=== PATIENT | female | born 1950 | race Caucasian/White ===

== ENCOUNTER 2016-10-07 13:23 | Inpatient (IN) | payer OTHER, MEDICAID ==
[2016-10-07] VITALS (10 sets, daily range): BP systolic 75–98; BP diastolic 30–65; PULSE 80–88; RESP 14–26; TEMP 97.1–98.3; O2SAT 90–97
[~2016-10-07] VITALS: Ht 162.6 cm; Wt 68.0 kg
[~2016-10-07 13:23] MED LIST: ALBU8.5H8 INH; ALEN70TA3 PO; AMI200 PO; AMIO200T2 PO; AZIT250T PO; BUSP5TAB3 PO; CARV25TA55 PO; CARV3.1246 PO; CLAR500T PO; COR3.125 PO; DIGO0.12 PO; DIGO125T79 PO; FURO-149 PO; FURO-150 PO; INSU100V11 SQ; INSU100V9 SUBCUT; INSU10VI4 SUBCUT; LEVO100T9 PO; LEVO500T20 PO; LEVO75TA7 PO; LIP10 PO; LOSA25TA3 PO; MAGN84TA4 PO; METO5TAB8 PO; NPH,100V SUBCUT; PANT40SU2 PO; PHEDM120 PO; PHEL5 PO; POLY17PO4 PO; POTA-118 PO; PRO40 PO; RIVA10TA PO; RIVA15TA PO; SOLI5TAB6 PO; SPIR25TA PO; VALS40TA6 PO; [UNRECOGNIZED DRUG - CODE] PO
--- NOTE | 2016-10-07 13:23 | NUR ---
TRIAGED AND BROUGTH BACK TO BED #5 VIA WHEELCHAIR, REPORT GIVEN TO [place]
--- NOTE | 2016-10-07 13:30 | NUR ---
PT. TO ER AAOx4 WITH HER DAUGHTER C/O COUGHING WITH SLIGHT SOB FOR LAST TWO WEEKS STATES THAT COUGH HAS WORSEN FOR LAST 4 DAYS, YELLOW SPUTUM AT THE MOMENT, NO FEVER, MILD SOB, HOB AT 45 DEGREES, 2 L OXYGEN NASAL CANULA, NO ACCESSORY USE OF MUSCLES, CLEAR SPEECH FOLLOWS COMMANDS, MILD EDEMA OF LOWER EXTREMITIES, LOW BP 89/50, ON SLITTER AND REWINDER
[2016-10-07 14:13] LABS: BASOPHILS % (AUTO) 0.4 % (0.0-2.0); EOSINOPHILS # (AUTO) 0.2 K/uL (0.0-0.4); EOSINOPHILS % (AUTO) 1.9 % (0.0-4.0); HEMATOCRIT 27.3 % (36-48); HEMOGLOBIN 8.5 g/dL (12.0-16.0); LYMPHOCYTES # (AUTO) 0.8 K/uL (1.0-5.5); LYMPHOCYTES % (AUTO) 9.9 % (20.5-51.5); MEAN CORPUSCULAR HEMOGLOBIN 23 pg (27-31); MEAN CORPUSCULAR HGB CONC 31 % (32-36); MEAN CORPUSCULAR VOLUME 75 fL (79.0-98.0); MONOCYTES # (AUTO) 0.9 K/uL (0.0-1.0); MONOCYTES % (AUTO) 10.5 % (1.7-9.3); NEUTROPHILS # (AUTO) 6.4 K/uL (1.8-7.7); NEUTROPHILS % (AUTO) 77.3 % (40.0-70.0); PLATELET COUNT (AUTO) 190 K/uL (130-430); RED BLOOD CELL COUNT(AUTO) 3.65 MIL/uL (4.2-6.2); RED CELL DISTRIBUTION WIDTH 15.9 % (9.0-15.0); WHITE BLOOD COUNT (AUTO) 8.3 K/uL (4.8-10.8)
[2016-10-07 14:19] LABS: INR 1.9 (0.8-1.2); PROTHROMBIN TIME 20.9 SECS (9.5-12.5)
[2016-10-07 14:24] LABS: CALCIUM 8.4 mg/dL (8.4-11.0); POTASSIUM 3.8 mmol/L (3.5-5.1)
[2016-10-07 14:25] LABS: ALBUMIN 3.2 g/dL (3.4-4.8); CREATININE 1.9 mg/dL (0.55-1.30); TOTAL BILIRUBIN 1.4 mg/dL (0.0-1.0); TOTAL PROTEIN, SERUM 7.9 g/dL (6.4-8.3)
[2016-10-07] MEDS ORDERED: AMIODARONE HCL 150 MG/3ML VIAL ONE (14:30)
--- NOTE | 2016-10-07 14:30 | NUR ---
Patient is having sustained slow V-tach at 105. Dr. Weeks is aware. Amiodarone 150mg IVP over 10 min with NS 500mL for hypotension started.
[2016-10-07] MEDS ORDERED: COR6.25 PO (14:45)
[2016-10-07] MEDS ORDERED: BUSP5TAB3 PO (14:45)
[2016-10-07] MEDS ORDERED: SPIR25TA4 PO (14:45)
[2016-10-07] MEDS ORDERED: METO25TA3 PO (14:45)
[2016-10-07] MEDS ORDERED: LOVA20TA2 PO (14:45)
[2016-10-07] MEDS ORDERED: METO5TAB8 PO (14:45)
--- NOTE | 2016-10-07 14:45 | NUR ---
Medication reconciliation completed with information provided by - PILL BOTTLES FROM PATIENT. Any prior medication reconciliation on file was reviewed and corrected.
--- NOTE | 2016-10-07 14:50 | NUR ---
Patient remains in a sustained wide complex rhythm. Dr. Weeks is aware.
[2016-10-07] MEDS ORDERED: AMIODARONE HCL 150 MG in D5W 100 ML IV ONE (15:00)
[2016-10-07] MEDS ORDERED: LEVOFLOXACIN 500 MG/D5W 100 ML IV ONE (16:00)
[2016-10-07] MEDS ORDERED: NACL 0.9% 1,000 ML IV ONE (16:00)
[2016-10-07] MEDS ORDERED: NS 500 ML IV ONE (16:00)
--- NOTE | 2016-10-07 16:00 | NUR ---
pt. in bed, bedpan provided for urination, states no pain, denies sob, denies pain
[2016-10-07 16:05] LABS: ABG TOTAL HEMOGLOBIN 9.3 G/dL (12.0-18.0); BLOOD GAS BASE EXCESS 4.6 mmol/L (-3.0-3.0); BLOOD GAS PH 7.459 (7.350-7.450)
[2016-10-07 16:06] LABS: BLOOD GAS COHb% 1.1 % (0.5-1.5); BLOOD GAS HHB 11.7 % (0.0-6.0)
--- NOTE | 2016-10-07 17:15 | NUR ---
orders received from Dr. krishna, pt.'s BP not stable 72/37, pt. will be transfered to ICU instead of MD VICTORINA aware
--- NOTE | 2016-10-07 18:00 | NUR ---
Patient will be admitted to care of dr. mendez. Admitted to icu unit. Will go to room 4 Belongings list completed. Summary report printed. Report given to ronna gatica
--- NOTE | 2016-10-07 18:30 | NUR ---
Dr Neri at bedside to assess patient. MD is aware of patient's low BP.
--- NOTE | 2016-10-07 19:00 | NUR ---
PM ASSESSMENT PT ALERT AND ORIENTED TO PERSON, PLACE, TIME AND EVENT. PT DENIES ANY PAIN. NO SIGNS OF DISTRESS AT THIS TIME. PACED RHYTHM ON HEAD SHIPPER. PACEMAKER NOTED TO LEFT CHEST. PT ON O2 2L NC . BREATHING EVEN AND UNLABORED. O2 SAT 98%. BP 84/53. PERIPHERAL IV 20G SALINE LOCK NOTED TO RIGHT FOREARM. SCD ON. PT'S DAUGHTER AT BEDSIDE. CALL LIGHT WITHIN REACH. BED AT LOWEST POSITION. CONTINUE TO MONITOR. Addendum: 10/07/16 at 1016 by Liss Martin RN TYPED IN WRONG TIME
--- NOTE | 2016-10-07 19:15 | NUR ---
SBAR given to MY. Endorsed all care.
--- NOTE | 2016-10-07 19:30 | NUR ---
PM ASSESSMENT PT ALERT AND ORIENTED TO PERSON, PLACE, TIME AND EVENT. PT DENIES ANY PAIN. NO SIGNS OF DISTRESS AT THIS TIME. PACED RHYTHM ON COFFEE SAMPLER. PACEMAKER NOTED TO LEFT CHEST. PT ON O2 2L NC . BREATHING EVEN AND UNLABORED. O2 SAT 98%. BP 84/53. PERIPHERAL IV 20G SALINE LOCK NOTED TO RIGHT FOREARM. SCD ON. PT'S DAUGHTER AT BEDSIDE. CALL LIGHT WITHIN REACH. BED AT LOWEST POSITION. CONTINUE TO MONITOR.
--- NOTE | 2016-10-07 19:37 | NUR ---
SPOKE WITH KRISTINA NEWSOME CONSULT WITH DR CHOWDARY.
[2016-10-07] MEDS: LEVOFLOXACIN 500 MG/D5W 100 ML IV SCH (20:00)
[2016-10-07] MEDS: busPIRone HCL 5 MG TABLET PO SCH (20:28)
[2016-10-07] MEDS: LACTOBACILLUS RHAMNOSUS GG 1 CAP CAPSULE PO SCH (20:28)
[2016-10-07] MEDS: SIMVASTATIN 10 MG TABLET PO SCH (20:28)
[2016-10-07] MEDS: INSULIN REGULAR, HUMAN 100 UNITS/ML, 10 ML VIAL (novoLIN R) SUBCUT PRN (20:33)
[2016-10-07] MEDS: CARVEDILOL 6.25 MG TABLET (COREG) PO SCH (21:00)
--- NOTE | 2016-10-07 21:00 | NUR ---
COREG HELD DUE TO LOW BLOOD PRESSURE. BP 75/30
[2016-10-07] MEDS: LevALBUTEROL HCL 1.25 MG/0.5 ML *CONC.* VIAL.NEB (XOPENEX CONC.) INH SCH (23:28)
[2016-10-08] VITALS (20 sets, daily range): BP systolic 71–109; BP diastolic 35–68; PULSE 71–101; RESP 12–28; TEMP 96.2–98.1; O2SAT 92–98
--- NOTE | 2016-10-08 00:40 | NUR ---
LOW BLOOD PRESSURE CALL DR MARTINI REGARDING LOW BLOOD PRESSURE. BP 71/37. NEW ORDER RECEIVED AND CARRIED OUT.
[2016-10-08] MEDS ORDERED: NS 250 ML IV ONE (00:45)
--- NOTE | 2016-10-08 02:00 | NUR ---
CARDIAC RHYTHM STRIP CANT BE PRINTED OUT DUE TO PRINTER OUT OF ORDER
--- NOTE | 2016-10-08 04:30 | NUR ---
CHG BATH DONE. LINEN CHANGED. PERINEAL CARE AND SKIN CARE DONE
[2016-10-08] MEDS: LEVOTHYROXINE SODIUM 0.1 MG TABLET PO SCH (06:13)
[2016-10-08 06:59] LABS: CALCIUM 7.9 mg/dL (8.4-11.0); CREATININE 1.57 mg/dL (0.55-1.30); POTASSIUM 3.4 mmol/L (3.5-5.1)
[2016-10-08 07:10] LABS: BASOPHILS % (AUTO) 0.5 % (0.0-2.0); EOSINOPHILS # (AUTO) 0.2 K/uL (0.0-0.4); HEMATOCRIT 23.4 % (36-48); HEMOGLOBIN 7.5 g/dL (12.0-16.0); MEAN CORPUSCULAR HEMOGLOBIN 24 pg (27-31); MEAN CORPUSCULAR HGB CONC 32 % (32-36); MEAN CORPUSCULAR VOLUME 74 fL (79.0-98.0); MONOCYTES # (AUTO) 0.8 K/uL (0.0-1.0); MONOCYTES % (AUTO) 10.7 % (1.7-9.3); NEUTROPHILS # (AUTO) 5.7 K/uL (1.8-7.7); NEUTROPHILS % (AUTO) 73.8 % (40.0-70.0); PLATELET COUNT (AUTO) 186 K/uL (130-430); RED BLOOD CELL COUNT(AUTO) 3.15 MIL/uL (4.2-6.2); RED CELL DISTRIBUTION WIDTH 15.7 % (9.0-15.0)
[2016-10-08 07:12] LABS: WHITE BLOOD COUNT (AUTO) 7.7 K/uL (4.8-10.8)
[2016-10-08] MEDS: LevALBUTEROL HCL 1.25 MG/0.5 ML *CONC.* VIAL.NEB (XOPENEX CONC.) INH SCH ×3 (07:26→23:00)
[2016-10-08 07:44] LABS: DIGOXIN 0.9 ng/mL (0.80-2.00)
--- NOTE | 2016-10-08 07:48 | NUR ---
GAVE REPORT TO ONCOMING NURSE
--- NOTE | 2016-10-08 08:00 | NUR ---
initial notes rec patient awake alert, speaks limited urdu and fluent in yi. at bedside and very supportive of care. with o2 at 2 liters via nasal cannula. no sob noted. resp easy and unlabored. bed in low position and side rails up and locked. call light within reached and knows when to call for help. will cotninue to monitor patient.
[2016-10-08] MEDS: AMIODARONE HCL 200 MG TABLET PO SCH (08:56)
[2016-10-08] MEDS: RIVAROXABAN 15 MG TABLET PO SCH (08:56)
[2016-10-08] MEDS: LACTOBACILLUS RHAMNOSUS GG 1 CAP CAPSULE PO SCH ×2 (08:56→21:57)
[2016-10-08] MEDS: DIGOXIN 0.125 MG TABLET PO SCH (08:56)
[2016-10-08] MEDS: busPIRone HCL 5 MG TABLET PO SCH ×2 (08:57→21:57)
[2016-10-08] MEDS: FUROSEMIDE 20 MG TABLET PO SCH (09:00)
[2016-10-08] MEDS ORDERED: METOLAZONE 5 MG TABLET PO SCH (09:00)
[2016-10-08] MEDS: SPIRONOLACTONE 25 MG TABLET (ALDACTONE) PO SCH (09:00)
[2016-10-08] MEDS: CARVEDILOL 6.25 MG TABLET (COREG) PO SCH (09:00)
[2016-10-08] MEDS ORDERED: LEVOTHYROXINE SODIUM 0.1 MG VIAL IVP SCH (09:00)
[2016-10-08] MEDS: PANTOPRAZOLE GRANULES PACKET 40 MG PO SCH (09:00)
[2016-10-08] MEDS ORDERED: METOPROLOL SUCCINATE 25 MG TAB.SR.24H (TOPROL XL) PO SCH (09:00)
--- NOTE | 2016-10-08 10:00 | NUR ---
rounds dr rodriguez was called and reported hgb of 7.5 and a hct 23.4. dr called back and with orders. assisted to the commode and kay well.no acute distress noted.
[2016-10-08] MEDS ORDERED: POTASSIUM CHLORIDE 20 MEQ TAB.PRT.SR PO ONE (12:00)
--- NOTE | 2016-10-08 12:00 | NUR ---
rounds resting, no sob noted. assisted to the commode. bs checked. no hypo hyperglycemic reaction noted.
[2016-10-08] MEDS: INSULIN REGULAR, HUMAN 100 UNITS/ML, 10 ML VIAL (novoLIN R) SUBCUT PRN ×3 (12:01→22:08)
--- NOTE | 2016-10-08 13:50 | NUR ---
rounds first unit of blood started. explained through a service center appraiser to watch out for any blood transfusion reaction such as itchiness, chest pain ,sob, back pain etc. pt went back in bed and resting comfortably.
--- NOTE | 2016-10-08 14:15 | NUR ---
rounds vital signs was taken post 15 min of blood transfusion and as follows 97'8, p 96, rr 22, bp 105/61. no untoward reaction noted. will continue to monitor patient.
--- NOTE | 2016-10-08 16:35 | NUR ---
round first unit of blood completed and no blood tansfusion reaction noted. ns is infusing, no infiltration noted.
--- NOTE | 2016-10-08 16:50 | NUR ---
rounds 2nd unit of blood started and stayed at bedside and observed for any untoward reaction. resting quietly in bed. seen by dr akhtar .
[2016-10-08] MEDS ORDERED: LOVASTATIN 20 MG TABLET PO SCH (18:00)
--- NOTE | 2016-10-08 18:45 | NUR ---
closing notes 2nd unit blood transfusion still in progress and no untoward reaction noted so far. sitting at the edge of the bed and eating dinner. seen by dr nieves and with order to transfer patient to [facility] post transfusion. report given to Suzanne and endorsed all care.
--- NOTE | 2016-10-08 19:10 | NUR ---
Beginning of shift report Pt sitting up on side of bed eating dinner, daughter bedside. A&Ox4, primarily Citizen Of [place] speaking. Able to make needs known, able to follow commands. Pt on O2 @ 2 l/m via nc, tolerating well. Respirations even and unlabored. 20g to R forearm, infusing 2nd unit of PRBCs, pt tolerating well. No s/s of adverse reactions, no s/s of infection or infiltration to IV site. Dr Mancini bedside evaluating pt. Reports she can be transferred to Telemetry once blood transfusion is complete. Call light within reach, bed in low position for safety, will continue to monitor.
--- NOTE | 2016-10-08 20:10 | NUR ---
Transfer to Tele Pt transferred to Telemetry room 101B. Daughter present. Report given to SELMA Pena. Pt in stable condition.
--- NOTE | 2016-10-08 20:15 | NUR ---
ADMISSION RECEIVED PATIENT FROM ICU, AWAKE, ALERT, ORIENTED, MAINLY MALTESE SPEAKING. DAUGHTER AT THE BEDSIDE. ADMISSION ASSESSMENT DONE AND DOCUMENTED. ORIENTED PATIENT TO HER ROOM, PHONE, TV AND CALL LIGHT. PLAN OF CARE DISCUSSED AND PATIENT AND DAUGHTER VERBALIZED UNDERSTANDING. NEEDS ATTENDED TO. SAFETY AND FALL PRECAUTON MEASURES IN PLACED. BED IN LOW AND LOCKED POSITION. CALL LIGHT PLACED WITH PATIENT.
[2016-10-08] MEDS: LEVOFLOXACIN 500 MG/D5W 100 ML IV SCH (21:56)
[2016-10-08] MEDS: SIMVASTATIN 10 MG TABLET PO SCH (21:56)
[2016-10-09] VITALS (7 sets, daily range): BP systolic 85–103; BP diastolic 49–61; PULSE 88–99; RESP 16–20; TEMP 96.2–97.3; O2SAT 91–99; Ht 162.6 cm; Wt 68.0 kg
--- NOTE | 2016-10-09 | NUR ---
PATIENT RESTING: Patient resting quietly. No acute distress noted. Vital signs within normal range.
--- NOTE | 2016-10-09 02:00 | NUR ---
PATIENT RESTING: Patient resting quietly. No acute distress noted. Vital signs within normal range.
--- NOTE | 2016-10-09 04:05 | NUR ---
PATIENT RESTING: Patient resting quietly. No acute distress noted. Vital signs within normal range.
[2016-10-09] MEDS: LEVOTHYROXINE SODIUM 0.1 MG TABLET PO SCH (06:23)
--- NOTE | 2016-10-09 06:50 | NUR ---
CLOSING NOTES PATIENT AWAKE, VITALS STABLE, DENIES ANY PAIN AND DISCOMFORT AT THIS TIME. ACCU CHECK DONE WITH BLOOD SUGAR OF 139 MG/DL, NO INSULIN COVERAGE PER SLIDING SCALE. ALL NEEDS ATTENDED TO. SAFETY AND FALL PRECAUTIONS MAINTAINED. CALL LIGHT PLACED WITHIN REACH.
[2016-10-09] MEDS: LevALBUTEROL HCL 1.25 MG/0.5 ML *CONC.* VIAL.NEB (XOPENEX CONC.) INH SCH ×3 (07:12→23:37)
[2016-10-09 07:33] LABS: BASOPHILS % (AUTO) 0.4 % (0.0-2.0); EOSINOPHILS # (AUTO) 0.1 K/uL (0.0-0.4); EOSINOPHILS % (AUTO) 0.9 % (0.0-4.0); HEMATOCRIT 31.8 % (36-48); HEMOGLOBIN 10.3 g/dL (12.0-16.0); LYMPHOCYTES # (AUTO) 0.9 K/uL (1.0-5.5); LYMPHOCYTES % (AUTO) 9.7 % (20.5-51.5); MEAN CORPUSCULAR HEMOGLOBIN 25 pg (27-31); MEAN CORPUSCULAR HGB CONC 32 % (32-36); MEAN CORPUSCULAR VOLUME 77 fL (79.0-98.0); MONOCYTES # (AUTO) 0.8 K/uL (0.0-1.0); MONOCYTES % (AUTO) 8.7 % (1.7-9.3); NEUTROPHILS # (AUTO) 7.7 K/uL (1.8-7.7); NEUTROPHILS % (AUTO) 80.3 % (40.0-70.0); PLATELET COUNT (AUTO) 150 K/uL (130-430); RED BLOOD CELL COUNT(AUTO) 4.16 MIL/uL (4.2-6.2); RED CELL DISTRIBUTION WIDTH 16.1 % (9.0-15.0); WHITE BLOOD COUNT (AUTO) 9.5 K/uL (4.8-10.8)
--- NOTE | 2016-10-09 07:38 | NUR ---
AM Rounds Pt received awake, Pt is alert oriented x4, Latvian speaking, Pt received breathing treatment. Breathing even unlabored. BP low, 85/60 pt denies any symptoms and states this is normal. Pt has pace maker. Breakfast provided at bedside, HOB elevated, call light in reach. at bedside. Discussed POC for the fay, pt verbalized understanding.
[2016-10-09 07:48] LABS: CALCIUM 8.2 mg/dL (8.4-11.0); CREATININE 1.5 mg/dL (0.55-1.30); POTASSIUM 4.2 mmol/L (3.5-5.1)
[2016-10-09] MEDS: METOPROLOL SUCCINATE 25 MG TAB.SR.24H (TOPROL XL) PO SCH (09:00)
[2016-10-09] MEDS: SPIRONOLACTONE 25 MG TABLET (ALDACTONE) PO SCH (09:00)
[2016-10-09] MEDS: FUROSEMIDE 20 MG TABLET PO SCH (09:00)
[2016-10-09] MEDS: busPIRone HCL 5 MG TABLET PO SCH ×2 (09:04→20:32)
[2016-10-09] MEDS: PANTOPRAZOLE GRANULES PACKET 40 MG PO SCH (09:04)
[2016-10-09] MEDS: LACTOBACILLUS RHAMNOSUS GG 1 CAP CAPSULE PO SCH ×2 (09:05→20:32)
[2016-10-09] MEDS: RIVAROXABAN 15 MG TABLET PO SCH (09:05)
[2016-10-09] MEDS: AMIODARONE HCL 200 MG TABLET PO SCH (09:06)
[2016-10-09] MEDS: DIGOXIN 0.125 MG TABLET PO SCH (09:06)
[2016-10-09] MEDS: INSULIN REGULAR, HUMAN 100 UNITS/ML, 10 ML VIAL (novoLIN R) SUBCUT PRN ×3 (12:38→20:48)
--- NOTE | 2016-10-09 14:40 | NUR ---
PT RESTING WITH FAMILY AT BEDSIDE. NO DISTRESS. CALL LIGHT IN REACH.
--- NOTE | 2016-10-09 17:27 | NUR ---
Pt. stable, resting, dinner at bedside. insulin given per sliding scale. family at bedside, bed at low position, call light within reach.
--- NOTE | 2016-10-09 18:25 | NUR ---
Closing note Pt resting with no distress, IV with no infiltration. BP continues to be hypotensive but asymptomatic, ambulating with daughter stand by assisting. her. Denies any dizzyness. Family ay bedside, call light in reach encourage pt to call for assist. .
--- NOTE | 2016-10-09 20:00 | NUR ---
Initial Notes Received patient sitting up in chair with legs elevated, awake, alert, oriented, family members at bedside. Patient is kiswahili speaking. Patient denies any acute distress or pain at this time. Breathing even and unlabored on room air. Blood pressure trends low per family, patient is asymptomatic. IV site patent/clean/dry. Educated patient on use of call light for assistance and fall precautions, patient and family verbalized understanding. Call light in hand, will continue to monitor.
[2016-10-09] MEDS: LEVOFLOXACIN 500 MG/D5W 100 ML IV SCH (20:31)
[2016-10-09] MEDS: SIMVASTATIN 10 MG TABLET PO SCH (20:32)
--- NOTE | 2016-10-09 22:05 | NUR ---
Rounds Patient continue to be sitting in chair with legs elevated, family at bedside. Patient refused offer to help patient back into bed, stating she wants to sit a little longer, family will assist patient back to bed when she is ready. Patient denies any acute distress or pain. Breathing even and unlabored. Needs addressed. Call light in hand, will continue to monitor.
--- NOTE | 2016-10-10 | NUR ---
Rounds Patient resting in bed, awake, at bedside. Patient denies any acute distress or pain. Breathing even and unlabored. Needs addressed, call light in hand. Will continue to monitor.
--- NOTE | 2016-10-10 02:00 | NUR ---
Rounds Patient resting in bed with eyes closed, at bedside. No acute distress noted, breathing even and unlabored. Call light in hand, will continue to monitor.
[2016-10-10 04:02] VITALS: BP 85/60; PULSE 98; RESP 18; TEMP 98.4; O2SAT 92
--- NOTE | 2016-10-10 04:08 | NUR ---
Rounds Patient resting in bed with eyes closed, easily aroused, at bedside. Patient denies any acute distress or pain at this time. Needs addressed, call light in hand. Will continue to monitor.
[2016-10-10] MEDS: LEVOTHYROXINE SODIUM 0.1 MG TABLET PO SCH (06:15)
--- NOTE | 2016-10-10 06:32 | NUR ---
Closing Notes Patient resting in bed with eyes closed, easily aroused, at bedside. Patient denies any acute distress or pain. Breathing even and unlabored. IV site patent/clean/dry. Needs addressed throughout shift. Call light in hand, fall precautions in place. Will continue to monitor for changes and safety, and endorse all patient care/needs to oncoming nurse.
[2016-10-10] MEDS: LevALBUTEROL HCL 1.25 MG/0.5 ML *CONC.* VIAL.NEB (XOPENEX CONC.) INH SCH ×3 (06:57→23:29)
[2016-10-10 08:00] VITALS: BP 84/51; PULSE 82; RESP 17; TEMP 97.6; O2SAT 96
--- NOTE | 2016-10-10 08:07 | NUR ---
opening note Report given by night nurse. patient alert and oriented x4, and ambulatory. patient show no signs and symptoms of distress. patient blood pressure 84/51, Dr. lal. blood pressure meds will be withheld for systolic blood pressure lower than 100 per protocol. patient denies pain. call light within reach. bed in lowest position. will continue to monitor.
[2016-10-10] MEDS: PANTOPRAZOLE SODIUM 40 MG TAB PO SCH (08:25)
[2016-10-10] MEDS: LACTOBACILLUS RHAMNOSUS GG 1 CAP CAPSULE PO SCH ×2 (08:25→20:40)
[2016-10-10] MEDS: busPIRone HCL 5 MG TABLET PO SCH ×2 (08:25→20:40)
[2016-10-10] MEDS: RIVAROXABAN 15 MG TABLET PO SCH (08:25)
[2016-10-10] MEDS: DIGOXIN 0.125 MG TABLET PO SCH (08:26)
[2016-10-10] MEDS: SPIRONOLACTONE 25 MG TABLET (ALDACTONE) PO SCH (08:29)
[2016-10-10] MEDS: AMIODARONE HCL 200 MG TABLET PO SCH (08:29)
[2016-10-10] MEDS: FUROSEMIDE 20 MG TABLET PO SCH (08:30)
[2016-10-10] MEDS: METOPROLOL SUCCINATE 25 MG TAB.SR.24H (TOPROL XL) PO SCH (08:30)
--- NOTE | 2016-10-10 10:14 | NUR ---
note patient resting comfortably, no pain, no distress or discomfort noted. no SOB, patient resting in chair, call light within reach, will continue to monitor. vital signs WNL besides decreased blood pressure (normal for patient), and asymptomatic. all medications were administered with no problems.
--- NOTE | 2016-10-10 11:30 | NUR ---
BLOOD SUGAR BLOOD SUGAR WAS 227 AT 1125. PATIENT IS NPO FOR PROCEDURE AND COVERAGE WAS NOT GIVEN. WILL CHECK AGAIN AT 1800. Addendum: 10/10/16 at 1248 by Lisa Schuster RN Blood sugar Patient resting comfortably. No signs and symptoms of distress noted. Blood sugar was taken at 1100 and was 138 and did not require coverage. will continue to monitor.
[2016-10-10 12:41] VITALS: BP 82/48; PULSE 102; RESP 16; TEMP 97.9; O2SAT 98
--- NOTE | 2016-10-10 12:48 | NUR ---
note Patient is eating lunch in bed. She distress or discomfort noted. Patient denies pain. Call light within reach. Will continue to monitor.
--- NOTE | 2016-10-10 14:32 | NUR ---
notes Patient is sitting in a chair and resting comfortably. No signs and symptoms of distress. Family at bedside. call light within reach. will continue to monitor.
[2016-10-10 16:27] VITALS: BP 91/51; PULSE 100; RESP 17; TEMP 98.1; O2SAT 99
--- NOTE | 2016-10-10 16:40 | NUR ---
note Patient is sleeping. No signs or symptoms of distress noted. Bed is in the lowest position and call light within reach. Will continue to monitor.
[2016-10-10 17:25] VITALS: BP 91/51; PULSE 100
[2016-10-10] MEDS: INSULIN REGULAR, HUMAN 100 UNITS/ML, 10 ML VIAL (novoLIN R) SUBCUT PRN ×2 (18:12→20:44)
--- NOTE | 2016-10-10 18:20 | NUR ---
CLOSING NOTE PATIENT RESTING COMFORTABLY. NO NOTED PAIN OR DISTRESS. CALL LIGHT WITHIN REACH. WILL GIVE REPORT TO NIGHT NURSE.
[2016-10-10 20:00] VITALS: BP 91/58; PULSE 71; RESP 18; TEMP 97.3; O2SAT 98
--- NOTE | 2016-10-10 20:00 | NUR ---
PM Shift Assessment Received patient walking around nurses station, no acute respiratory distress noted, daughter is at the bedside. Assessment complete, no complain of pain at this time. IV noted to right forearm, saline locked at this time, no redness or swelling noted to IV site. Plan of care discussed with patient and daughter, they verbalized understanding. Patient is verbally able to make needs known and encouraged to do so. Call light is within reach, all fall and safety precautions in place, will continue to monitor for change in patient status.
[2016-10-10] MEDS: SIMVASTATIN 10 MG TABLET PO SCH (20:40)
[2016-10-10] MEDS: LEVOFLOXACIN 500 MG/D5W 100 ML IV SCH (20:45)
--- NOTE | 2016-10-10 22:25 | NUR ---
RN Rounds Patient is resting quietly in bed, no acute distress noted. Scheduled medications were administered per MD order. Bedtime snack provided per request. Call light is within reach, all fall and safety precautions in place, will continue to monitor.
[2016-10-11] VITALS (7 sets, daily range): BP systolic 79–132; BP diastolic 50–76; PULSE 76–98; RESP 16–18; TEMP 96.9–98.2; O2SAT 92–98
--- NOTE | 2016-10-11 00:27 | NUR ---
RN Rounds Patient is sleeping, respirations are even and unlabored, no acute distress noted. No non-verbal signs of pain noted at this time. Call light is within reach, all fall and safety precautions in place, will continue to monitor.
--- NOTE | 2016-10-11 02:31 | NUR ---
RN Rounds Patient is sleeping, respirations are even and unlabored, no acute distress noted. Call light is within reach, all fall and safety precautions in place, will continue to monitor.
--- NOTE | 2016-10-11 04:28 | NUR ---
RN Rounds Patient is sleeping, but easily arousable, no acute distress noted. Call light is within reach, all fall and safety precautions in place, will continue to monitor.
[2016-10-11] MEDS: LEVOTHYROXINE SODIUM 0.1 MG TABLET PO SCH (06:05)
[2016-10-11] MEDS: INSULIN REGULAR, HUMAN 100 UNITS/ML, 10 ML VIAL (novoLIN R) SUBCUT PRN (06:09)
--- NOTE | 2016-10-11 06:53 | NUR ---
Closing Notes Patient is resting quietly in bed, no acute distress noted, is at the bedside. Blood sugar was assessed per MD order and insulin provided per sliding scale. Patient is stable, all needs met throughout shift. Will continue to monitor until SBAR report is endorsed to AM nurse at bedside.
[2016-10-11 07:02] LABS: BASOPHILS % (AUTO) 0.4 % (0.0-2.0); EOSINOPHILS # (AUTO) 0.2 K/uL (0.0-0.4); EOSINOPHILS % (AUTO) 2.4 % (0.0-4.0); HEMATOCRIT 28.5 % (36-48); HEMOGLOBIN 9.1 g/dL (12.0-16.0); LYMPHOCYTES # (AUTO) 0.9 K/uL (1.0-5.5); LYMPHOCYTES % (AUTO) 10.9 % (20.5-51.5); MEAN CORPUSCULAR HEMOGLOBIN 24 pg (27-31); MEAN CORPUSCULAR HGB CONC 32 % (32-36); MEAN CORPUSCULAR VOLUME 76 fL (79.0-98.0); MONOCYTES # (AUTO) 0.9 K/uL (0.0-1.0); MONOCYTES % (AUTO) 10.2 % (1.7-9.3); NEUTROPHILS # (AUTO) 6.4 K/uL (1.8-7.7); NEUTROPHILS % (AUTO) 76.1 % (40.0-70.0); PLATELET COUNT (AUTO) 135 K/uL (130-430); RED BLOOD CELL COUNT(AUTO) 3.74 MIL/uL (4.2-6.2); RED CELL DISTRIBUTION WIDTH 16.6 % (9.0-15.0); WHITE BLOOD COUNT (AUTO) 8.4 K/uL (4.8-10.8)
[2016-10-11 07:16] LABS: CREATININE 1.43 mg/dL (0.55-1.30); POTASSIUM 3.7 mmol/L (3.5-5.1)
[2016-10-11] MEDS: LevALBUTEROL HCL 1.25 MG/0.5 ML *CONC.* VIAL.NEB (XOPENEX CONC.) INH SCH ×2 (07:23→15:45)
--- NOTE | 2016-10-11 08:00 | NUR ---
Initial Notes Patient A/O to name, , event. Respirations even and unlabored with use of nasal cannula at 2 L, denies difficulty breathing. IV access patent. Denies general discomfort. Reviewed use of call light with patient. Fall and safety precautions in place. Encouraged patient to call for assistance every time. Bed alarm is on.
[2016-10-11] MEDS: SPIRONOLACTONE 25 MG TABLET (ALDACTONE) PO SCH (09:00)
[2016-10-11] MEDS: FUROSEMIDE 20 MG TABLET PO SCH (09:00)
[2016-10-11] MEDS: AMIODARONE HCL 200 MG TABLET PO SCH (09:00)
[2016-10-11] MEDS: METOPROLOL SUCCINATE 25 MG TAB.SR.24H (TOPROL XL) PO SCH (09:00)
[2016-10-11] MEDS: PANTOPRAZOLE SODIUM 40 MG TAB PO SCH (10:07)
[2016-10-11] MEDS: LACTOBACILLUS RHAMNOSUS GG 1 CAP CAPSULE PO SCH (10:07)
[2016-10-11] MEDS: DIGOXIN 0.125 MG TABLET PO SCH (10:07)
[2016-10-11] MEDS: busPIRone HCL 5 MG TABLET PO SCH (10:08)
[2016-10-11] MEDS: RIVAROXABAN 15 MG TABLET PO SCH (10:10)
--- NOTE | 2016-10-11 10:55 | NUR ---
Notes Patient ambulated to chair with minimal assistance. Sitting in chair. Denies discomfort or difficulty breathing.
--- NOTE | 2016-10-11 12:39 | NUR ---
Notes Patient sitting upright having lunch. No difficulty eating independently. No aspiration noted. Patient ambulated in hallway earlier. assistance provided by laz. Gait steady, no use of walker needed.
--- NOTE | 2016-10-11 18:00 | NUR ---
Notes Patient refused insulin coverage at this time stating she has a decreased appetite, but will check her sugar at home before she goes to bed.
--- NOTE | 2016-10-11 18:59 | NUR ---
D/C Patient Patient given medication reconciliation form and D/C instructions. Exit Care provided. Patient verbalized understanding. MD discussed with patient the results and treatment provided. Ambulatory with steady gait for discharge to home. Patient in stable condition, ID band removed. IV catheter removed, intact and dressing applied, no active bleeding. Rx given and reviewed with patient. Patient educated on pain management and follow-up care. All belongings sent with patient.
[2016-10-14] MEDS ORDERED: ALENDRONATE SODIUM 70 MG TABLET (FOSAMAX) PO SCH (09:00)
--- NOTE | 2016-10-15 14:07 | NUR ---
Discharge Follow Up Phone Calls SECRETARY OF POLICE phoned patient, , and spoke with patient's daughter, Shelby. Shelby stated that patient is feeling only a little better. Patient attended her follow up appointment with Dr Mancini today. Shelby assists patient in managing her blood sugar as directed. Shelby stated they have no other questions or concerns.
== END 2016-10-11 19:00 | disposition home or self-care (01) | DRG 871 ==
LOC: SED 13:23 → SIC 17:03 → STU 10-08 20:18
PROVIDERS: ADMIT Family Medicine; ATTEND Family Medicine
PROC: 30233N1 Transfusion of Nonautologous Red Blood Cells into Peripheral Vein, Percutaneous Approach (ICD-10-PCS; principal; 2016-10-08)
DX: A41.9 Sepsis, unspecified organism (principal); J18.9 Pneumonia, unspecified organism; E44.1 Mild protein-calorie malnutrition; D68.59 Other primary thrombophilia; I42.9 Cardiomyopathy, unspecified; I50.22 Chronic systolic (congestive) heart failure; I48.2 Chronic atrial fibrillation; E11.9 Type 2 diabetes mellitus without complications; E03.9 Hypothyroidism, unspecified; E78.5 Hyperlipidemia, unspecified; I09.9 Rheumatic heart disease, unspecified; D63.8 Anemia in other chronic diseases classified elsewhere; I11.0 Hypertensive heart disease with heart failure; I25.10 Atherosclerotic heart disease of native coronary artery without angina pectoris; Z79.899 Other long term (current) drug therapy; Z95.2 Presence of prosthetic heart valve; Z95.810 Presence of automatic (implantable) cardiac defibrillator; Z68.25 Body mass index [BMI] 25.0-25.9, adult; Z79.01 Long term (current) use of anticoagulants; Z88.0 Allergy status to penicillin
CPT/HCPCS: 36415; 36600; 71010; 80048; 80053; 80162-TC; 82803-TC; 82962; 83605; 83880; 84484; 85025; 85610-TC; 85730-TC; 86886; 86900; 86901; 86920; 87081; 93005; 94640; 94760; 96361; 96365; 96375; 99291; J0282; J1815; J1956; J7040; J7050; P9021

== ENCOUNTER 2016-11-25 12:30 | Inpatient (IN) | payer OTHER, MEDICAID ==
[2016-11-25] VITALS (12 sets, daily range): BP systolic 80–101; BP diastolic 43–68; PULSE 94–107; RESP 16–35; TEMP 97.3–98.9; O2SAT 92–97
[~2016-11-25] VITALS: Ht 165.1 cm; Wt 68.9 kg
[~2016-11-25 12:30] MED LIST changes: +COR6.25 PO; +LOVA20TA2 PO; +METO25TA3 PO; +SPIR25TA4 PO
--- NOTE | 2016-11-25 12:39 | NUR ---
Pt placed to ER waiting room in stable condition.
--- NOTE | 2016-11-25 13:01 | NUR ---
Pt placed to ER bed 05 and to gown. Pt report given to SLEMA Mayorga.
--- NOTE | 2016-11-25 13:20 | NUR ---
ER at bedside examining patient.
--- NOTE | 2016-11-25 13:25 | NUR ---
IV WAS STARTED ON RIGHT FOREARM 20G AND BLOOD WAS COLLECTED FOR LAB. PATIENT HAD AN EKG TAKEN AND DR WINSTON SAW IT. O2@2L VIA N/C WAS GIVEN TO PATIENT.
[2016-11-25] MEDS ORDERED: FUROSEMIDE 40 MG/4 ML VIAL IVP ONE (13:30)
[2016-11-25] MEDS ORDERED: ASPIRIN 81 MG TAB.CHEW PO ONE (13:30)
[2016-11-25 13:35] LABS: BASOPHILS # (AUTO) 0.3 K/uL (0.0-0.2); EOSINOPHILS % (AUTO) 0.1 % (0.0-4.0); HEMATOCRIT 30.1 % (36-48); HEMOGLOBIN 10.1 g/dL (12.0-16.0); LYMPHOCYTES # (AUTO) 0.6 K/uL (1.0-5.5); LYMPHOCYTES % (AUTO) 6.4 % (20.5-51.5); MEAN CORPUSCULAR HEMOGLOBIN 26 pg (27-31); MEAN CORPUSCULAR HGB CONC 34 % (32-36); MEAN CORPUSCULAR VOLUME 77 fL (79.0-98.0); MONOCYTES # (AUTO) 0.9 K/uL (0.0-1.0); MONOCYTES % (AUTO) 9.8 % (1.7-9.3); NEUTROPHILS # (AUTO) 7.5 K/uL (1.8-7.7); NEUTROPHILS % (AUTO) 80.7 % (40.0-70.0); PLATELET COUNT (AUTO) 150 K/uL (130-430); RED BLOOD CELL COUNT(AUTO) 3.91 MIL/uL (4.2-6.2); RED CELL DISTRIBUTION WIDTH 18.7 % (9.0-15.0); WHITE BLOOD COUNT (AUTO) 9.3 K/uL (4.8-10.8)
[2016-11-25 13:40] LABS: INR 2.1 (0.8-1.2); PROTHROMBIN TIME 23.3 SECS (9.5-12.5)
[2016-11-25 13:56] LABS: CALCIUM 8.1 mg/dL (8.4-11.0); CREATININE 1.89 mg/dL (0.55-1.30); POTASSIUM 3.3 mmol/L (3.5-5.1)
--- NOTE | 2016-11-25 13:58 | NUR ---
Pt reassessed hypotensive, MD Darnell made aware of pt condition, oders given to initiate levophed drip.
[2016-11-25 13:59] LABS: ALBUMIN 3.2 g/dL (3.4-4.8); PHOSPHORUS 3.6 mg/dL (2.7-4.5); TOTAL BILIRUBIN 1.8 mg/dL (0.0-1.0); TOTAL PROTEIN, SERUM 7.7 g/dL (6.4-8.3)
[2016-11-25] MEDS ORDERED: NOREPINEPHRINE BITARTRATE 4 MG in NS 250 ML IV ONE (14:15)
[2016-11-25 14:21] LABS: CKMB RELATIVE INDEX 0.4 (0.0-2.9); CREATINE KINASE MB 0.9 ng/mL (0-3.6)
[2016-11-25 14:31] LABS: BILIRUBIN,URINE NEGATIVE (NEGATIVE); CLARITY/URINE CLEAR (CLEAR); COLOR,URINE YELLOW (YELLOW); GLUCOSE,URINE NEGATIVE (NEGATIVE); KETONES,URINE NEGATIVE (NEGATIVE); LEUKOCYTE ESTERASE ,URINE NEGATIVE (NEGATIVE); NITRITE, URINE NEGATIVE (NEGATIVE); PH,URINE 5.5 (5.0-8.0); PROTEIN URINE NEGATIVE (NEGATIVE); UROBILINOGEN,URINE 0.2 (0.2-1.0)
--- NOTE | 2016-11-25 14:31 | NUR ---
levophed was started at 5mcg and bp is being checked q 5 minutes. patient was able to urinate in bed greer and was taken to lab.
[2016-11-25 14:33] LABS: BLOOD, URINE TRACE (NEGATIVE)
--- NOTE | 2016-11-25 14:33 | NUR ---
patient reassessed and sbp is 97 and map is 81, going to decrease the levophed to 2mcg and will conitnue to monitor patient. rate is 7.5ml/hr
[2016-11-25] MEDS ORDERED: HEPARIN 25,000 UNITS/D5W 250ML 250 ML IV SCH (15:00)
[2016-11-25 15:13] LABS: BACTERIA,URINE None Seen /HPF (None Seen); WBC,URINE NONE SEEN /HPF (0-3)
--- NOTE | 2016-11-25 15:13 | NUR ---
Patient will be admitted to care of [facility]. Admitted to unit. Will go to room . Belongings list completed. Summary report printed. Report given to .
--- NOTE | 2016-11-25 15:13 | NUR ---
PATIENT WAS REASSESSED BEFORE TRANSFER TO ICU, DR MARTINI WILL BE ADMITTING. LAST VITAL SIGNS WERE 128/46 107, 26 90%. PATIENT URINATED BEFORE LEAVING. DR MARTINI CHANGED THE CONSULT TO DR HARMON AND DC'D THE HEPARIN DRIP. PATIENT IS AWARE
--- NOTE | 2016-11-25 15:28 | NUR ---
Patient will be admitted to care of DR FERNANDEZ. Admitted to ICU unit. Will go to room 2. Belongings list completed. Summary report printed. Report given to JESS. Addendum: 11/25/16 at [address] MARTINI WILL BE ATTENDING NOT DR FERNANDEZ
--- NOTE | 2016-11-25 15:28 | NUR ---
PATIENT'S VITALS WERE TAKEN AGAIN AND IT WAS 79/41 AND THE LEVOPHED WAS INCREASED TO 4MCG. WILL BE TRANSFERRRING HER TO ICU
[2016-11-25] MEDS ORDERED: HEPARIN SODIUM,PORCINE 3000 UNITS/0.6 ML BOLUS IVP PRN (15:30)
[2016-11-25] MEDS ORDERED: HEPARIN SODIUM,PORCINE 2000 UNITS/0.4 ML BOLUS IVP PRN (15:30)
[2016-11-25] MEDS ORDERED: MILK OF MAGNESIA 30 ML UDC PO PRN (15:30)
--- NOTE | 2016-11-25 15:40 | NUR ---
ICU ADMISSION. RECEIVED PT IN ROOM 2, AWAKE AND ALERT, NON TANZANIAN SPEAKING, ON LEVOPHED DRIP AT 4 MCG/MIN, BP 95/68, ATRIAL FIB ON CARROT TIER, DENIES CHEST PAIN, COUGHING AT TIMES, DAUGHTER STATED THAT SHE HAS BEEN COUGHING FOR A WEEK, AFEBRILE, ON O2 VIA NASAL CANNULA, ABLE TO EXPRESS BASIC NEEDS, BEDPAN OFFERED AND VOIDED ADEQUATE AMOUNT.
[2016-11-25] MEDS ORDERED: ACETAMINOPHEN 325 MG TABLET PO PRN (15:45)
--- NOTE | 2016-11-25 15:48 | NUR ---
consult for dr. deleon called spoke to [facility] dialed [phone]
[2016-11-25] MEDS: INSULIN REGULAR, HUMAN 100 UNITS/ML, 10 ML VIAL (novoLIN R) SUBCUT PRN ×2 (17:08→20:47)
--- NOTE | 2016-11-25 17:50 | NUR ---
CONSULT. DR ARVIZU HERE AND EXAMINED PT, WILL DO ECHOCARDIOGRAM.
[2016-11-25] MEDS ORDERED: LOVASTATIN 20 MG TABLET PO SCH (18:00)
--- NOTE | 2016-11-25 18:15 | NUR ---
IV DRIPS. BLOOD PRESSURE 77/54, TITRATED LEVOPHED DRIP TO 8 MCG/MIN.
--- NOTE | 2016-11-25 20:00 | NUR ---
Initial Notes Patient alert and oriented, mostly guinean speaking. Daughter at bedside. Patient denies pain at this time. Denies SOB, on 2L/NC. Denies nausea/vomiting at this time. IV site patent, flushes well, levophed infusing as ordered. Patient able to reposition self in bed. Tele: Teetee Chadwick. Goal of pain management, cardiac and respiratory stability and safety this shift. Call light within reach. Will continue to monitor.
[2016-11-25 20:03] LABS: CKMB RELATIVE INDEX 0.3 (0.0-2.9); CREATINE KINASE MB 0.8 ng/mL (0-3.6)
--- NOTE | 2016-11-25 20:15 | NUR ---
Spoke to Spoke to on the phone, informed MD of patients latest BP- . Informed MD, patient has scheduled lasix and metropolol at 2100. MD stated ok to give lasix, hold metropolol. Order noted and carried out. Addendum: 11/25/16 at 2032 by Vanesa Razo RN Order to hold metropolol dose for tonight.
[2016-11-25] MEDS: METOPROLOL SUCCINATE 25 MG TAB.SR.24H (TOPROL XL) PO SCH (20:28)
[2016-11-25] MEDS: busPIRone HCL 5 MG TABLET PO SCH (20:35)
[2016-11-25] MEDS: SIMVASTATIN 10 MG TABLET PO SCH (20:35)
[2016-11-25] MEDS: OXYBUTYNIN CHLORIDE 5 MG TABLET PO SCH (20:35)
[2016-11-25] MEDS: FUROSEMIDE 20 MG/2 ML VIAL IVP SCH (20:36)
[2016-11-25] MEDS ORDERED: INSULIN GLARGINE 100 UNITS/ML 10 ML VIAL SUBCUT SCH (21:00)
--- NOTE | 2016-11-25 22:02 | NUR ---
Notes Patient resting in bed. Denies pain or discomfort. No SOB noted. IV site patent, flushes well. Voiding adequate urine, using bedpan. Call light within reach. Will continue to monitor.
[2016-11-26] VITALS (23 sets, daily range): BP systolic 80–124; BP diastolic 42–84; PULSE 88–120; RESP 11–31; TEMP 96.7–100; O2SAT 90–99; Ht 165.1 cm; Wt 68.9 kg
--- NOTE | 2016-11-26 | NUR ---
Notes Patient sleeping at this time. No s/s of pain or discomfort noted. No SOB noted. Afebrile. IV site patent, flushes well. Call light within reach. Will continue to monitor.
[2016-11-26] MEDS: NOREPINEPHRINE BITARTRATE 4 MG in NS 250 ML IV SCH ×4 (00:09→16:27)
--- NOTE | 2016-11-26 02:40 | NUR ---
Notes Patient resting in bed. Denies pain or discomfort. No SOB noted. IV site patent, flushes well. Call light within reach. Will continue to monitor.
[2016-11-26] MEDS: LEVOTHYROXINE SODIUM 0.1 MG TABLET PO SCH (06:19)
--- NOTE | 2016-11-26 06:35 | NUR ---
Closing Notes Patient denies pain at this time. Denies SOB, on 2L/NC. Denies nausea/vomiting at this time. IV site patent, flushes well. Levophed at 9 mcg/min, blood pressure systolic in the 90s. Patient able to reposition self in bed. Goal of pain management, cardiac and respiratory stability and safety met. Call light within reach. Will continue to monitor.
[2016-11-26 06:42] LABS: BASOPHILS % (AUTO) 0.4 % (0.0-2.0); EOSINOPHILS % (AUTO) 0.4 % (0.0-4.0); HEMATOCRIT 31.8 % (36-48); HEMOGLOBIN 10.4 g/dL (12.0-16.0); LYMPHOCYTES % (AUTO) 10.1 % (20.5-51.5); MEAN CORPUSCULAR HEMOGLOBIN 26 pg (27-31); MEAN CORPUSCULAR HGB CONC 33 % (32-36); MEAN CORPUSCULAR VOLUME 78 fL (79.0-98.0); MONOCYTES % (AUTO) 9.8 % (1.7-9.3); NEUTROPHILS # (AUTO) 7.7 K/uL (1.8-7.7); NEUTROPHILS % (AUTO) 79.3 % (40.0-70.0); PLATELET COUNT (AUTO) 165 K/uL (130-430); RED BLOOD CELL COUNT(AUTO) 4.07 MIL/uL (4.2-6.2); WHITE BLOOD COUNT (AUTO) 9.7 K/uL (4.8-10.8)
[2016-11-26] MEDS ORDERED: MILK OF MAGNESIA 30 ML UDC PO PRN (07:30)
--- NOTE | 2016-11-26 07:40 | NUR ---
IV DRIPS. TITRATED LEVOPHED DRIP TO 15 MCG/MIN, BLOOD PRESSURE 77/60.
--- NOTE | 2016-11-26 07:50 | NUR ---
AM ASSESSMENT. PT SEEN BUNDLED UP IN BED, TEMP 100, SHE COMPLAINED, "I'M COLD", BLANKETS PROVIDED, THERMOSTAT REDUCED, ENCOURAGED TO DRINK LUKE WARM WATER, COUGHING ON AND OFF, O2 OFF HER, O2 SAT 87%, O2 REAPPLIED VIA NASAL CANNULA, SATURATION WENT TO 96%.
[2016-11-26 08:15] LABS: CALCIUM 8.1 mg/dL (8.4-11.0); CREATININE 1.55 mg/dL (0.55-1.30); DIGOXIN 0.1 ng/mL (0.80-2.00); PHOSPHORUS 3.4 mg/dL (2.7-4.5)
[2016-11-26] MEDS: FUROSEMIDE 20 MG/2 ML VIAL IVP SCH ×2 (08:16→21:09)
[2016-11-26] MEDS: SPIRONOLACTONE 25 MG TABLET (ALDACTONE) PO SCH (08:17)
[2016-11-26] MEDS: OXYBUTYNIN CHLORIDE 5 MG TABLET PO SCH ×2 (08:18→21:13)
[2016-11-26] MEDS: busPIRone HCL 5 MG TABLET PO SCH ×2 (08:18→21:12)
[2016-11-26] MEDS: AMIODARONE HCL 200 MG TABLET PO SCH (08:18)
[2016-11-26] MEDS: RIVAROXABAN 15 MG TABLET PO SCH (08:19)
[2016-11-26] MEDS: PANTOPRAZOLE GRANULES PACKET 40 MG PO SCH (08:19)
[2016-11-26] MEDS: DIGOXIN 0.125 MG TABLET PO SCH (08:19)
[2016-11-26] MEDS: METOLAZONE 5 MG TABLET PO SCH (08:20)
[2016-11-26] MEDS: METOPROLOL SUCCINATE 25 MG TAB.SR.24H (TOPROL XL) PO SCH ×2 (08:21→21:00)
--- NOTE | 2016-11-26 08:30 | NUR ---
CONSULT. PAGED AND SPOKE WITH DR ARVIZU REGARDING LOW POTASSIUM AND TROPONIN LEVEL 0.099, WILL COME IN TO SEE PT AND TO REFER LAB RESULT TO DR MARTINI. PAGED DR MARTINI AFTER SPEAKING TO DR ARVIZU.
--- NOTE | 2016-11-26 08:50 | NUR ---
IV DRIPS. BLOOD PRESSURE 71/25, LEVOPHED DRIP TURNED UP TO 20 MCG/MIN.
[2016-11-26] MEDS ORDERED: LEVOTHYROXINE SODIUM 0.1 MG VIAL IVP SCH (09:00)
[2016-11-26] MEDS ORDERED: SOLIFENACIN SUCCINATE 5 MG TABLET PO SCH (09:00)
--- NOTE | 2016-11-26 09:00 | NUR ---
TEST. PT JUST COMPLETED ECHOCARDIOGRAM, EJECTION FRACTION 35%, REGIONAL OPERATIONS DIRECTOR STATED THAT SHE HAD CALLED THE REPORT IN TO DR ARVIZU.
--- NOTE | 2016-11-26 09:09 | NUR ---
PAIN. PT COMPLAINED OF MODERATE HEADACHE, OFFERED TYLENOL, AND SHE TOOK 2 TABS.
--- NOTE | 2016-11-26 09:20 | NUR ---
CONSULT. DR ARVIZU HERE AND WENT TO SEE PT, DISCUSSED PLAN OF CARE WITH PT'S DAUGHTER.
--- NOTE | 2016-11-26 10:08 | NUR ---
Social Service Note: Pt referred by manager social for ICU Screening. COMPETITIVE SHOPPER met with pt and pt's dtr, Shelby ([phone]) at bedside. Pt lives at home with her daughter. Pt's dtr states that pt requires assistance with ADLs and walking; pt has FWW and cane at home. Pt's dtr states that they would like a wheelchair upon discharge for community use. COMPETITIVE SHOPPER will update DC liaison planner of families request. Pt's dtr has no other concerns/needs at this time. COMPETITIVE SHOPPER will remain available for support and will follow up as needs arise.
--- NOTE | 2016-11-26 11:45 | NUR ---
WENT IN TO ROOM TO CHECK ON LEVOPHED AND FOUND PTS DAUGHTER TRYING TO GET HER MOM OOB TO BSC WITH LEVOPHED INFUSING AT 20 MCGS AND BP 71/40. INFORMED PTS DAUGHTER THAT PT COULD NOT GET OOB BED AND WOULD NEED TO USE BEDPAN DUE TO LOW BP. PT SOB WITH ACTIVITY AT THIS TIME. RR 30 HR 109 WITH ACTIVITY. EVS CALLED TO REMOVE BSC.
--- NOTE | 2016-11-26 14:00 | NUR ---
PAGED DR MARTINI, AND HE RETURNED THE CALL, NOTIFIED HIM OF CURRENT LABS, STATED " I WILL COME IN TO SEE PT TODAY".
--- NOTE | 2016-11-26 14:52 | NUR ---
TEST. ABDOMINAL ULTRASOUND IN PROGRESS.
[2016-11-26] MEDS: INSULIN REGULAR, HUMAN 100 UNITS/ML, 10 ML VIAL (novoLIN R) SUBCUT PRN ×2 (16:35→21:19)
--- NOTE | 2016-11-26 17:30 | NUR ---
DIET. SERVED PT HER DINNER, NEEDS ASSESSED AND ATTENDED, VOIDED ADEQUATE AMOUNT USING A BEDPAN, PERINEAL HYGIENE DONE.
[2016-11-26] MEDS ORDERED: COMMUNICATION ORDER XX ONE (17:45)
--- NOTE | 2016-11-26 19:00 | NUR ---
IV DRIPS. PT HAVING A GOOD CONVERSATION WITH HER FAMILY, IV LEVOPHED REMAINS AT 20 MCG/ MIN, CALL LIGHT IN EASY REACH.
[2016-11-26] MEDS: NOREPINEPHRINE BITARTRATE 8 MG in NS 242 ML IV PRN (20:11)
[2016-11-26] MEDS ORDERED: POTASSIUM CHLORIDE 20 MEQ TAB.PRT.SR PO ONE (20:45)
[2016-11-26] MEDS: SIMVASTATIN 10 MG TABLET PO SCH (21:12)
[2016-11-27] VITALS (24 sets, daily range): BP systolic 80–118; BP diastolic 45–82; PULSE 94–134; RESP 12–29; TEMP 97.3–98.3; O2SAT 89–100
[2016-11-27] MEDS: NOREPINEPHRINE BITARTRATE 8 MG in NS 242 ML IV PRN ×3 (03:37→17:15)
[2016-11-27] MEDS: LEVOTHYROXINE SODIUM 0.1 MG TABLET PO SCH (06:36)
[2016-11-27 06:39] LABS: BASOPHILS % (AUTO) 0.2 % (0.0-2.0); EOSINOPHILS # (AUTO) 0.1 K/uL (0.0-0.4); EOSINOPHILS % (AUTO) 0.8 % (0.0-4.0); HEMATOCRIT 35.6 % (36-48); HEMOGLOBIN 11.3 g/dL (12.0-16.0); LYMPHOCYTES # (AUTO) 1.2 K/uL (1.0-5.5); LYMPHOCYTES % (AUTO) 11.7 % (20.5-51.5); MEAN CORPUSCULAR HEMOGLOBIN 25 pg (27-31); MEAN CORPUSCULAR HGB CONC 32 % (32-36); MEAN CORPUSCULAR VOLUME 78 fL (79.0-98.0); MONOCYTES # (AUTO) 0.9 K/uL (0.0-1.0); MONOCYTES % (AUTO) 8.8 % (1.7-9.3); NEUTROPHILS # (AUTO) 8.4 K/uL (1.8-7.7); NEUTROPHILS % (AUTO) 78.5 % (40.0-70.0); PLATELET COUNT (AUTO) 187 K/uL (130-430); RED BLOOD CELL COUNT(AUTO) 4.57 MIL/uL (4.2-6.2); RED CELL DISTRIBUTION WIDTH 19.2 % (9.0-15.0); WHITE BLOOD COUNT (AUTO) 10.6 K/uL (4.8-10.8)
[2016-11-27 06:42] LABS: CALCIUM 8.6 mg/dL (8.4-11.0); CREATININE 1.48 mg/dL (0.55-1.30); POTASSIUM 3.3 mmol/L (3.5-5.1)
--- NOTE | 2016-11-27 07:50 | NUR ---
AM Assessment Received pt AAOx4, Hebrew speaking only with daughter at bedside. Pt denies any pain or discomfort at this time. No SOB or signs of distress noted. Skin warm and dry. IVSL R wrist intact, patent, no infiltration or erythema noted. IV L wrist intact, patent, no infiltration or erythema noted with levophed 20 mcg/min. Bed in lowest position. Call light in reach. Will continue to monitor.
[2016-11-27] MEDS: FUROSEMIDE 20 MG/2 ML VIAL IVP SCH ×2 (08:30→20:59)
[2016-11-27] MEDS: PANTOPRAZOLE GRANULES PACKET 40 MG PO SCH (08:33)
[2016-11-27] MEDS: AMIODARONE HCL 200 MG TABLET PO SCH ×2 (08:34→20:59)
[2016-11-27] MEDS: RIVAROXABAN 15 MG TABLET PO SCH (08:34)
[2016-11-27] MEDS: METOPROLOL SUCCINATE 25 MG TAB.SR.24H (TOPROL XL) PO SCH ×2 (08:35→21:00)
[2016-11-27] MEDS: busPIRone HCL 5 MG TABLET PO SCH ×2 (08:36→20:59)
[2016-11-27] MEDS: METOLAZONE 5 MG TABLET PO SCH (08:37)
[2016-11-27] MEDS: DIGOXIN 0.125 MG TABLET PO SCH (08:38)
[2016-11-27] MEDS: SPIRONOLACTONE 25 MG TABLET (ALDACTONE) PO SCH (08:39)
[2016-11-27] MEDS: OXYBUTYNIN CHLORIDE 5 MG TABLET PO SCH ×2 (08:39→21:00)
--- NOTE | 2016-11-27 10:15 | NUR ---
Levophed Titrated levophed to 18 mcg/kg/min. BP 106/85.
[2016-11-27] MEDS: LevALBUTEROL HCL 1.25 MG/0.5 ML *CONC.* VIAL.NEB (XOPENEX CONC.) INH SCH ×3 (10:45→23:03)
[2016-11-27] MEDS ORDERED: *HEPARIN PER PHARMACY XX ONE (11:00)
--- NOTE | 2016-11-27 11:00 | NUR ---
Dr. Mancini in to see pt. Notified Dr. Mancini about pt wanting to use bedside commode despite unstable blood pressure. Dr. Mancini states, "It's okay, let her use the bedside commode. She can use it." Pt assisted to bedside commode. RN at bedside for safety. Will continue to monitor.
[2016-11-27] MEDS ORDERED: HEPARIN SODIUM,PORCINE 2000 UNITS/0.4 ML BOLUS IVP PRN (11:15)
[2016-11-27] MEDS ORDERED: HEPARIN SODIUM,PORCINE 3000 UNITS/0.6 ML BOLUS IVP PRN (11:15)
[2016-11-27] MEDS ORDERED: HEPARIN SODIUM,PORCINE 5000 UNITS/ML VIAL IV ONE (11:30)
[2016-11-27 12:05] LABS: INR 1.6 (0.8-1.2); PROTHROMBIN TIME 17.8 SECS (9.5-12.5)
[2016-11-27] MEDS: LEVOFLOXACIN 500 MG/D5W 100 ML IV SCH (12:16)
[2016-11-27] MEDS: INSULIN REGULAR, HUMAN 100 UNITS/ML, 10 ML VIAL (novoLIN R) SUBCUT PRN ×3 (12:18→21:13)
--- NOTE | 2016-11-27 12:30 | NUR ---
Patient Round Pt had 100% of meal and had CHG bath with minimal assistance. Linens changed. Pt denies any pain or discomfort at this time. Will continue to monitor.
--- NOTE | 2016-11-27 13:00 | NUR ---
Dr. Arroyo in to see pt. New orders made. Will continue with plan of care.
[2016-11-27] MEDS: HEPARIN 25,000 UNITS in 250 ML PREMIX IV PRN (13:59)
--- NOTE | 2016-11-27 14:00 | NUR ---
Heparin Drip Started pt on heparin drip 1000 units/hr per Dr. Arroyo's orders. Pt and daughter educated on risks and benefits of heparin, stated understanding. Will continue to monitor.
--- NOTE | 2016-11-27 17:00 | NUR ---
Levophed/Patient Update BP 112/64, titrate levophed to 16 mcg/min. Pt and family member have been repeatedly instructed to call for assist when going to commode. Pt and family member states they are "aware of increased fall risk." Will continue to monitor.
--- NOTE | 2016-11-27 19:30 | NUR ---
Closing/Endorsement Pt sitting up in bed with family member present at bedside. Levophed at 16 mcg/min and heparin infusing 1000 units/hr, no infiltration or erythema noted at IV sites. Pt denies any pain or discomfort. Endorsed plan of care to [place] RN via SBAR tool and bedside round.
--- NOTE | 2016-11-27 20:00 | NUR ---
BLOOD DRAWN: Blood for lab work drawn by the student development specialist for PTT. Patient tolerated well.
--- NOTE | 2016-11-27 20:00 | NUR ---
PM Assessment Pt awake alert oriented x 4. Luxembourgish speaking, clear speech. Breathing symmetrically, non labored. Pt on 2L NC in place. Iv on the right wrist 20g. saline locked. Left wrist 18g, infusing Levophed at 18 mcg/min. No redness or swelling at the site. Safety precaution in place. Bed in the lowest positioned, locked. Educated pt to use call light for assistance. Pt verbalized understanding. call light within reach. will continue to monitor.
[2016-11-27] MEDS: SIMVASTATIN 10 MG TABLET PO SCH (20:59)
--- NOTE | 2016-11-27 21:07 | NUR ---
Lab called with critical PTT >150 followed protocol by shut off Heparin 1000 unit and flushed IV with NS 5ml.
--- NOTE | 2016-11-27 22:00 | NUR ---
Pt awake alert. Daughter noted at bedside. Pt was sitting up at bedside. Educated pt regarding risk for fall. pt verbalized understanding. Pt independently repositioned in bed. Call light in reach.
--- NOTE | 2016-11-27 22:15 | NUR ---
Lab called with critical PTT >121.7. Followed protocol. By ordered lab to be done in an hour.
--- NOTE | 2016-11-27 22:18 | NUR ---
Wire Mill Operator at pt's bedside noted drawn for PTT. Pt tolerated well
[2016-11-28] VITALS (26 sets, daily range): BP systolic 70–124; BP diastolic 36–76; PULSE 90–143; RESP 11–37; TEMP 97.6–98.4; O2SAT 30–99
--- NOTE | 2016-11-28 00:30 | NUR ---
PTT result of 71.9. No action per protocol. will order APTT daily. Addendum: 11/28/16 at 0154 by Silverio Woodard RN Resumed Heparin 800 unit/hr
[2016-11-28] MEDS: NOREPINEPHRINE BITARTRATE 8 MG in NS 242 ML IV PRN ×4 (00:57→20:42)
--- NOTE | 2016-11-28 01:40 | NUR ---
Pt Noted trying to get off bed. Educated Pt bed. Immediately rushed to the pt's room, assisted pt to the bedside commode. Comfort needs met. Reeducated pt to use the call light for assistance. educated regarding risk for fall due to the low blood pressure and pt on Levophed 18mcg/min. daughter stated that, " I know what's going on, I know the risk". Charge nurse was notified that pt and her daughter is non complaint. Educated daughter regarding low blood pressure and regarding pt's medication by the charge nurse. Daughter repeated by stating that she know the risk. call light within reach. Bed in the lowest positioned. locked. will continue monitor
[2016-11-28] MEDS: LEVOTHYROXINE SODIUM 0.1 MG TABLET PO SCH (07:09)
--- NOTE | 2016-11-28 07:30 | NUR ---
AM Assessment Received Pt awake, alert, orientated x4. Pt is Dutch speaking. Pt understands few words in Slovenian. Pt able to follow simple commands and verbalize needs. Pacing A-fib with BBB noted on telemonitor. Heparin drip currently infusing at 800units/Hr and Levophed @ 20mcg/min double concentrated. O2 sat @99% via NC @ 2L O2. Lung sounds auscultated, crackles and wheezing noted left upper quadrant. Abd Auscultated, bowel sounds noted throughout all quadrant. Abd. is soft and and distended. IV access noted left wrist 18G, and right wrist 20G. Both ports patent with blood return. No s/s of infiltration or inflammation noted. Assessment done, plan of care discussed with Pt, call light within easy reach, bed at lowest position, will continue to monitor.
[2016-11-28] MEDS: PANTOPRAZOLE GRANULES PACKET 40 MG PO SCH (08:16)
[2016-11-28] MEDS: busPIRone HCL 5 MG TABLET PO SCH ×2 (08:17→20:14)
[2016-11-28] MEDS: FUROSEMIDE 20 MG/2 ML VIAL IVP SCH ×2 (08:17→20:14)
[2016-11-28] MEDS: AMIODARONE HCL 200 MG TABLET PO SCH ×2 (08:17→20:12)
[2016-11-28] MEDS: DIGOXIN 0.125 MG TABLET PO SCH (08:18)
[2016-11-28] MEDS: SPIRONOLACTONE 25 MG TABLET (ALDACTONE) PO SCH (08:18)
[2016-11-28] MEDS: OXYBUTYNIN CHLORIDE 5 MG TABLET PO SCH ×2 (08:18→20:15)
[2016-11-28] MEDS: METOPROLOL SUCCINATE 25 MG TAB.SR.24H (TOPROL XL) PO SCH ×2 (08:19→20:13)
[2016-11-28] MEDS: METOLAZONE 5 MG TABLET PO SCH (08:23)
[2016-11-28 08:36] LABS: BASOPHILS # (AUTO) 0.1 K/uL (0.0-0.2); EOSINOPHILS # (AUTO) 0.1 K/uL (0.0-0.4); EOSINOPHILS % (AUTO) 0.7 % (0.0-4.0); HEMATOCRIT 35.9 % (36-48); HEMOGLOBIN 11.4 g/dL (12.0-16.0); LYMPHOCYTES # (AUTO) 1.6 K/uL (1.0-5.5); LYMPHOCYTES % (AUTO) 13.4 % (20.5-51.5); MEAN CORPUSCULAR HEMOGLOBIN 25 pg (27-31); MEAN CORPUSCULAR HGB CONC 32 % (32-36); MEAN CORPUSCULAR VOLUME 78 fL (79.0-98.0); MONOCYTES # (AUTO) 0.9 K/uL (0.0-1.0); MONOCYTES % (AUTO) 7.2 % (1.7-9.3); NEUTROPHILS # (AUTO) 9.2 K/uL (1.8-7.7); NEUTROPHILS % (AUTO) 77.7 % (40.0-70.0); PLATELET COUNT (AUTO) 160 K/uL (130-430); RED BLOOD CELL COUNT(AUTO) 4.61 MIL/uL (4.2-6.2); RED CELL DISTRIBUTION WIDTH 18.5 % (9.0-15.0); WHITE BLOOD COUNT (AUTO) 11.9 K/uL (4.8-10.8)
[2016-11-28 08:52] LABS: CALCIUM 8.5 mg/dL (8.4-11.0); CREATININE 1.44 mg/dL (0.55-1.30); POTASSIUM 3.7 mmol/L (3.5-5.1)
--- NOTE | 2016-11-28 09:00 | NUR ---
Lab results for PTT 80.1 noted. Heparin dripped decrease to 7,000 units. New orders for PTT lab drawn entered. No s/s of active bleeding noted. Informed Pt to push the call light if Pt needs assistance with anything. Pt verbalized understanding. Call light within easy reach, bed at lowest position, will continue monitor. Addendum: 11/28/16 at 1718 by Pam Lira RN Data entered in error. Heparin decreased to 700 units/Hr.
--- NOTE | 2016-11-28 09:39 | NUR ---
Pt awake. Pt requesting bedpan. Pt voided 200cc clear yellow urine noted. Nakia care provided. Informed Pt to push the call light if Pt needs assistance with anything. Pt verbalized understanding. Call light within easy reach, bed at lowest position, will continue to monitor.
[2016-11-28] MEDS: LEVOFLOXACIN 500 MG/D5W 100 ML IV SCH (12:13)
[2016-11-28] MEDS: INSULIN REGULAR, HUMAN 100 UNITS/ML, 10 ML VIAL (novoLIN R) SUBCUT PRN ×3 (12:16→20:38)
--- NOTE | 2016-11-28 13:28 | NUR ---
AL PLANNING Order to transfer to [facility] for labor law professor. Spoke w nurse states it's for tomorrow. Called & spoke w Nuzhat @ [facility] cardio research lab assistant, ph [phone], has pt scheduled for tomorrow @ 3pm, pt needs to be in ICU @ 1pm. Spoke w pt @ dtr Shelby @ bedside in serbian already aware of plan for transfer & both agreeable w transfer. Called & spoke w Jasmina @ [facility] admitting, ph [phone], [facility] has her on schedule needs face sheet faxed w insurance information, fax [phone]. Face Sheet faxed. Addendum: 11/28/16 at 1447 by Meka Wylie RN Called & spoke w Janiya @ [facility] admitting, [facility] has everything needed pt is set up for Cardio research lab assistant tomorrow. Informed ICU bed needed. [facility] bed will be assigned tomorrow, if no beds avail will go straight to research lab assistant & bed will be assigned after procedure.
--- NOTE | 2016-11-28 14:00 | NUR ---
Lab result APPT 82.4 heparin decreased to 6,000 units/Hr. Addendum: 11/28/16 at 1718 by Pam Lira RN Data entered in error. Heparin decreased to 600 units/Hr.
--- NOTE | 2016-11-28 15:14 | NUR ---
Dr. Mancini at the bedside discussing plan of care. Informed Pt to push the call light if Pt needs assistance with anything. Pt verbalized understanding. Call light within easy reach, bed at lowest position, will continue to monitor.
[2016-11-28] MEDS ORDERED: BISACODYL 10 MG/SUPPOSITORY RC PRN (15:45)
[2016-11-28] MEDS ORDERED: BISACODYL 10 MG/SUPPOSITORY RC ONE (15:45)
--- NOTE | 2016-11-28 16:04 | NUR ---
Spoke with Dr. Mcnally. made aware Pt has been restless, agitated, tossing and turning in bed, attempting to get out of bed, removing medical apparatus model maker, and talking to self. Speech is mumbled. Reorientated Pt to place, time and situation. Pt teaching has been ineffective. New orders to administered Haldol 5mg IM once, Ativan 2mg IM once, and Benadryl 50mg IM once. New orders read back, acknowledge, and noted. Addendum: 11/28/16 at 1615 by Pam Lira RN Data entered in error. Wrong Pt.
--- NOTE | 2016-11-28 17:16 | NUR ---
Pt awake. Pt breathing even and unlabored. Pt denies pain, SOB, or discomfort. Pt c/o constipation, medication administered as ordered. Informed Pt to push the call light if Pt needs assistance with anything. Pt verbalized understanding. Call light within easy reach, bed at lowest position, will continue to monitor.
--- NOTE | 2016-11-28 19:00 | NUR ---
Closing notes Pt awake and eating dinner. Pt denies pain, SOB or discomfort. Pt stated she does not need anything at the moment. Informed Pt to push the call light if Pt needs assistance with anything. Pt verbalized understanding. Heparin infusing at 600 units/Hr and Levophed @ 18mcg/min. Call light within easy reach, bed at lowest position, will endorse on coming RN to follow up on APTT blood drawn @ 1999 and to obtain HIDA scan consent form.
--- NOTE | 2016-11-28 19:55 | NUR ---
PM ASSESSMENT PT ALERT AND ORIENTED TO PERSON, PLACE, TIME AND EVENT. PT CALM AND COOPERATIVE. PT ON O2 2L NC. O2 SAT 99%. BREATHING EVEN AND UNLABORED. PACED RHYTHM WITH ATRIAL FIBRILLATION ON AGRICULTURAL TECHNICIAN. PERIPHERAL IV 18 G NOTED TO LEFT WRIST AND PERIPHERAL IV 20G SALINE LOCK TO RIGHT WRIST. LEVOPHED DRIP RUNNING @ 18 MCG/MIN. HEPARIN DRIP INFUSING @ 600 UNITS/HR. FAMILY AT BEDSIDE. CALL LIGHT WITHIN REACH. BED AT LOWEST POSITION. CONTINUE TO MONITOR THE PT.
--- NOTE | 2016-11-28 20:00 | NUR ---
APTT RESULT APTT 56.4 . ACCORDING TO PROTOCOL, NO ACTION REQUIRED. CONTINUE APTT DAILY. NO ACTIVE BLEEDING NOTED. PT VITAL SIGNS STABLE.
[2016-11-28] MEDS: DOCUSATE SODIUM 100 MG CAPSULE PO SCH (20:13)
[2016-11-28] MEDS: SIMVASTATIN 10 MG TABLET PO SCH (20:13)
--- NOTE | 2016-11-28 21:00 | NUR ---
TITRATED LEVOPHED DOWN TO 16 MCG/MIN
[2016-11-28] MEDS: HEPARIN 25,000 UNITS in 250 ML PREMIX IV PRN (22:38)
[2016-11-29] VITALS (13 sets, daily range): BP systolic 87–110; BP diastolic 39–75; PULSE 87–110; RESP 11–27; TEMP 97.8–98.3; O2SAT 96–100
[2016-11-29] MEDS ORDERED: NOREPINEPHRINE 4 MG/4 ML VIAL IV ONE (03:43)
[2016-11-29] MEDS: LEVOTHYROXINE SODIUM 0.1 MG TABLET PO SCH (06:38)
--- NOTE | 2016-11-29 07:17 | NUR ---
gave shift report to oncoming nurse
--- NOTE | 2016-11-29 07:18 | NUR ---
AM Assessment Pt awake. Pt breathing even and unlabored. O2 sat @ 99 % via 2L NC. Crackle and wheezing lung sounds noted right upper lobes. Heparin drip infusing at 600units/Hr and Levophed @ 16 mcg/min. Pt requesting a bedpan. Pt had a small loose brown BM. Nakia care provided. Informed Pt to push the call light if Pt needs assistance with anything. Pt verbalized understanding. Call light within easy reach, bed at lowest position, will continue to monitor.
--- NOTE | 2016-11-29 07:30 | NUR ---
Lab results PTT 44.0. Heparin drip increased to 700units/Hr.
[2016-11-29] MEDS: LevALBUTEROL HCL 1.25 MG/0.5 ML *CONC.* VIAL.NEB (XOPENEX CONC.) INH SCH (08:08)
[2016-11-29] MEDS: SPIRONOLACTONE 25 MG TABLET (ALDACTONE) PO SCH (08:24)
[2016-11-29] MEDS: AMIODARONE HCL 200 MG TABLET PO SCH (08:24)
[2016-11-29] MEDS: DIGOXIN 0.125 MG TABLET PO SCH (08:25)
[2016-11-29] MEDS: PANTOPRAZOLE GRANULES PACKET 40 MG PO SCH (08:25)
[2016-11-29] MEDS: DOCUSATE SODIUM 100 MG CAPSULE PO SCH (08:25)
[2016-11-29] MEDS: busPIRone HCL 5 MG TABLET PO SCH (08:25)
[2016-11-29] MEDS: OXYBUTYNIN CHLORIDE 5 MG TABLET PO SCH (08:25)
[2016-11-29] MEDS: METOLAZONE 5 MG TABLET PO SCH (08:26)
[2016-11-29] MEDS: METOPROLOL SUCCINATE 25 MG TAB.SR.24H (TOPROL XL) PO SCH (08:26)
[2016-11-29] MEDS: FUROSEMIDE 20 MG/2 ML VIAL IVP SCH (09:00)
--- NOTE | 2016-11-29 09:30 | NUR ---
Transported Pt to radiology for HIDA scan. Pt was placed on a portable telemonitor. Pacing: A-fib with BBB noted. Heparin drip @700units/Hr and Levophed at 16mcg/Hr still infusing. Will continue to monitor.
--- NOTE | 2016-11-29 10:05 | NUR ---
Dr Mancini paged for D/C orders. Currently awaiting returned phone call.
--- NOTE | 2016-11-29 10:07 | NUR ---
BIBI planning: s/w ICU nurse Mansi and Nuzhat at [facility] laboratory secretary. Cardiac cath time moved up to 1400 per Nuzhat and wants pt there at 1200. Nuzhat is aware pt on IV Levophed at 16mcg and IV Heparin drip 600 units/hr--S/W Jasmina in admitting--no Critical Care bed assigned yet-she will call me back with bed # when assigned. bibi Waters store planner, arranging CCT ambulance transport as per Mansi, pt must remain on IV Heparin drip and Levophed during transport--Pt in HIDA scan currently- RN Addendum: 11/29/16 at 1019 by Evelin MERINO Called [facility] ambulance [phone] spoke with Nakul arranged CCT (Barrel Handler IV Levophed at 16mcg and IV Heparin drip 600 units/hr) transport pickle maker 11:30pm to [facility] [address] [address]. Ordered Radiology CD. Placed transportation packet in nurses station.
--- NOTE | 2016-11-29 10:12 | NUR ---
DC planning: US Hinkle will give message to Mansi about procedure time pushed up to 2pm instead of 3pm--CCT transport being arranged by Evelin for 1130--- SELMA
[2016-11-29] MEDS: NOREPINEPHRINE BITARTRATE 8 MG in NS 242 ML IV PRN (10:33)
[2016-11-29 10:49] LABS: ALBUMIN 2.8 g/dL (3.4-4.8); CALCIUM 8.4 mg/dL (8.4-11.0); CREATININE 1.31 mg/dL (0.55-1.30); POTASSIUM 4.3 mmol/L (3.5-5.1); TOTAL PROTEIN, SERUM 7.9 g/dL (6.4-8.3)
[2016-11-29] MEDS: LEVOFLOXACIN 500 MG/D5W 100 ML IV SCH (11:01)
--- NOTE | 2016-11-29 12:16 | NUR ---
Spoke with Nia TIRE DEBEADER at [facility]. Informed RN that Dr. Acosta ([facility] Radiologist), stated that he will like to complete the HIDA scan before Pt is transferred to [facility]. Nia stated that is ok. Pt's procedure is still scheduled for 1500.
--- NOTE | 2016-11-29 12:17 | NUR ---
DAUGHTER AT BEDSIDE PICKING UP PATIENT'S BELONGINGS.
--- NOTE | 2016-11-29 12:55 | NUR ---
PT TRANSFERRED Report given to Nia at [facility]. Transfer packet with Transfer Orders and Medication Reconciliation form given to Mckinley KAMINSKI with report. Exitcare provided. [facility] ID band removed, replaced with ID band with pt's name and . Patient will be transferred with Levophed drip @18mcg/min, Heparin drip @700units, and 2L O2 via NC. All belongings sent with patient. Patient left floor via gurney escorted by CCT RN and EMT in no distress.
[2016-12-02] MEDS ORDERED: ALENDRONATE SODIUM 70 MG TABLET (FOSAMAX) PO SCH (09:00)
== END 2016-11-29 12:55 | disposition short-term general hospital (02) | DRG 291 ==
LOC: SED 12:30 → SIC 14:51
PROVIDERS: ADMIT Family Medicine; ATTEND Family Medicine
DX: I11.0 Hypertensive heart disease with heart failure (principal); J18.9 Pneumonia, unspecified organism; E44.1 Mild protein-calorie malnutrition; E87.1 Hypo-osmolality and hyponatremia; I50.43 Acute on chronic combined systolic (congestive) and diastolic (congestive) heart failure; I42.9 Cardiomyopathy, unspecified; E11.9 Type 2 diabetes mellitus without complications; E03.9 Hypothyroidism, unspecified; D64.9 Anemia, unspecified; I25.10 Atherosclerotic heart disease of native coronary artery without angina pectoris; I48.2 Chronic atrial fibrillation; J20.9 Acute bronchitis, unspecified; Z95.2 Presence of prosthetic heart valve; Z88.0 Allergy status to penicillin; Z79.899 Other long term (current) drug therapy; Z95.0 Presence of cardiac pacemaker; Z68.25 Body mass index [BMI] 25.0-25.9, adult; Z79.01 Long term (current) use of anticoagulants; I95.9 Hypotension, unspecified
CPT/HCPCS: 36415; 71010; 71020-TC; 76700-TC; 78226; 80048; 80053; 80162-TC; 81000-TC; 82150-TC; 82550-TC; 82553-TC; 82962; 83605; 83690-TC; 83735-TC; 83880; 84100-TC; 84484; 85025; 85610-TC; 85730-TC; 87040-TC; 87081; 93005; 93306; 94640; 96374; 99285; A9537; J1644; J1815; J1940; J1956; J7030; J7050

== ENCOUNTER 2016-12-24 11:39 | Emergency (ER) | payer OTHER, MEDICAID ==
[~2016-12-24] VITALS: Ht 160 cm; Wt 68.0 kg
[~2016-12-24 11:39] MED LIST changes: -ALBU8.5H8 INH; -AMIO200T2 PO; -AZIT250T PO; -CARV25TA55 PO; -CARV3.1246 PO; -CLAR500T PO; -COR3.125 PO; -COR6.25 PO; -DIGO0.12 PO; -FURO-149 PO; -FURO-150 PO; -INSU100V11 SQ; -INSU10VI4 SUBCUT; -LEVO100T9 PO; -LEVO500T20 PO; -LEVO75TA7 PO; -LIP10 PO; -LOSA25TA3 PO; -NPH,100V SUBCUT; -PHEDM120 PO; -PHEL5 PO; -POLY17PO4 PO; -POTA-118 PO; -PRO40 PO; -RIVA10TA PO; -SPIR25TA4 PO; -VALS40TA6 PO
[2016-12-24 11:46] VITALS: BP_SYST 167
[2016-12-24 14:52] VITALS: BP_SYST 158
== END 2016-12-24 14:52 | disposition home or self-care (01) ==
LOC: SED 11:39
DX: S93.401A Sprain of unspecified ligament of right ankle, initial encounter (principal); I10 Essential (primary) hypertension; Z86.79 Personal history of other diseases of the circulatory system; Z79.899 Other long term (current) drug therapy; Z88.0 Allergy status to penicillin; Z79.4 Long term (current) use of insulin; W01.0XXA Fall on same level from slipping, tripping and stumbling without subsequent striking against object, initial encounter; Y93.89 Activity, other specified; Y92.89 Other specified places as the place of occurrence of the external cause; Y99.8 Other external cause status
CPT/HCPCS: 99284

== ENCOUNTER 2017-01-06 13:02 | Inpatient (IN) | payer OTHER, MEDICAID ==
[2017-01-06] VITALS (10 sets, daily range): BP systolic 76–104; BP diastolic 41–72; PULSE 78–88; RESP 16–27; TEMP 97–98; O2SAT 92–99
[~2017-01-06] VITALS: Ht 165.1 cm; Wt 54.0 kg
[~2017-01-06 13:02] MED LIST changes: +ALBU8.5H8 INH; +AMIO200T2 PO; +AZIT250T PO; +CARV25TA55 PO; +CARV3.1246 PO; +CLAR500T PO; +COR3.125 PO; +COR6.25 PO; +DIGO0.12 PO; +FURO-149 PO; +FURO-150 PO; +INSU100V11 SQ; +INSU10VI4 SUBCUT; +LEVO100T9 PO; +LEVO500T20 PO; +LEVO75TA7 PO; +LIP10 PO; +LOSA25TA3 PO; +NPH,100V SUBCUT; +PHEDM120 PO; +PHEL5 PO; +POLY17PO4 PO; +POTA-118 PO; +PRO40 PO; +RIVA10TA PO; +SPIR25TA4 PO; +VALS40TA6 PO
[2017-01-06] MEDS ORDERED: NACL 0.9% 1,000 ML IV ONE (14:30)
[2017-01-06 15:00] LABS: BASOPHILS # (AUTO) 0.1 K/uL (0.0-0.2); BASOPHILS % (AUTO) 0.9 % (0.0-2.0); EOSINOPHILS # (AUTO) 0.1 K/uL (0.0-0.4); EOSINOPHILS % (AUTO) 1.2 % (0.0-4.0); HEMATOCRIT 29.2 % (36-48); HEMOGLOBIN 9.1 g/dL (12.0-16.0); LYMPHOCYTES # (AUTO) 0.9 K/uL (1.0-5.5); LYMPHOCYTES % (AUTO) 11.9 % (20.5-51.5); MEAN CORPUSCULAR HEMOGLOBIN 24 pg (27-31); MEAN CORPUSCULAR HGB CONC 31 % (32-36); MEAN CORPUSCULAR VOLUME 78 fL (79.0-98.0); MONOCYTES # (AUTO) 0.7 K/uL (0.0-1.0); MONOCYTES % (AUTO) 9.2 % (1.7-9.3); NEUTROPHILS # (AUTO) 5.4 K/uL (1.8-7.7); NEUTROPHILS % (AUTO) 76.8 % (40.0-70.0); PLATELET COUNT (AUTO) 177 K/uL (130-430); RED BLOOD CELL COUNT(AUTO) 3.75 MIL/uL (4.2-6.2); RED CELL DISTRIBUTION WIDTH 18.9 % (9.0-15.0); WHITE BLOOD COUNT (AUTO) 7.2 K/uL (4.8-10.8)
[2017-01-06] MEDS ORDERED: WARF2TAB2 PO (15:02)
[2017-01-06] MEDS ORDERED: SIMV10TA2 PO (15:02)
[2017-01-06] MEDS ORDERED: DITXL5 PO (15:02)
[2017-01-06] MEDS ORDERED: TOPXL100 PO (15:02)
[2017-01-06] MEDS ORDERED: FURO-150 PO (15:02)
[2017-01-06 15:04] LABS: CALCIUM 8.4 mg/dL (8.4-11.0); CREATININE 1.97 mg/dL (0.55-1.30); POTASSIUM 4.6 mmol/L (3.5-5.1)
[2017-01-06] MEDS: NACL 0.9% 1,000 ML IV SCH ×2 (18:13→18:16)
[2017-01-06] MEDS ORDERED: GLUCOSE 15 GM GEL (in 37.5 GM TUBE) PO PRN ×2 (18:15)
[2017-01-06] MEDS ORDERED: DEXTROSE 50%-WATER 50 ML DISP.SYRIN IVP PRN ×2 (18:15)
[2017-01-06 19:11] LABS: INR 2.3 (0.8-1.2); PROTHROMBIN TIME 25.7 SECS (9.5-12.5)
[2017-01-06] MEDS: METOPROLOL SUCCINATE 50 MG TAB.SR.24H (TOPROL XL) PO SCH (21:00)
[2017-01-06] MEDS: INSULIN REGULAR, HUMAN 100 UNITS/ML, 10 ML VIAL (novoLIN R) SUBCUT PRN (21:07)
[2017-01-06] MEDS: OXYBUTYNIN CHLORIDE 5 MG TABLET PO SCH (21:08)
[2017-01-07] VITALS (20 sets, daily range): BP systolic 88–165; BP diastolic 52–102; PULSE 75–98; RESP 12–22; TEMP 96.8–98.7; O2SAT 91–97
[2017-01-07] MEDS: NACL 0.9% 1,000 ML IV SCH (04:19)
[2017-01-07 06:43] LABS: CALCIUM 8.4 mg/dL (8.4-11.0); CREATININE 1.68 mg/dL (0.55-1.30); POTASSIUM 4.6 mmol/L (3.5-5.1)
[2017-01-07 06:46] LABS: INR 2.1 (0.8-1.2); PROTHROMBIN TIME 23.9 SECS (9.5-12.5)
[2017-01-07 06:54] LABS: BASOPHILS % (AUTO) 0.7 % (0.0-2.0); EOSINOPHILS # (AUTO) 0.1 K/uL (0.0-0.4); EOSINOPHILS % (AUTO) 0.9 % (0.0-4.0); HEMATOCRIT 29.9 % (36-48); HEMOGLOBIN 9.4 g/dL (12.0-16.0); LYMPHOCYTES # (AUTO) 1.2 K/uL (1.0-5.5); LYMPHOCYTES % (AUTO) 17.4 % (20.5-51.5); MEAN CORPUSCULAR HEMOGLOBIN 26 pg (27-31); MEAN CORPUSCULAR HGB CONC 31 % (32-36); MEAN CORPUSCULAR VOLUME 82 fL (79.0-98.0); MONOCYTES # (AUTO) 0.7 K/uL (0.0-1.0); MONOCYTES % (AUTO) 10.1 % (1.7-9.3); NEUTROPHILS % (AUTO) 70.9 % (40.0-70.0); PLATELET COUNT (AUTO) 196 K/uL (130-430); RED BLOOD CELL COUNT(AUTO) 3.63 MIL/uL (4.2-6.2); RED CELL DISTRIBUTION WIDTH 18.8 % (9.0-15.0)
[2017-01-07] MEDS ORDERED: COMMUNICATION ORDER XX ONE (07:30)
[2017-01-07] MEDS: SPIRONOLACTONE 25 MG TABLET (ALDACTONE) PO SCH (09:00)
[2017-01-07] MEDS: METOPROLOL SUCCINATE 50 MG TAB.SR.24H (TOPROL XL) PO SCH ×2 (09:00→21:00)
[2017-01-07] MEDS ORDERED: OXYBUTYNIN CHLORIDE 5 MG XL TAB PO SCH (09:00)
[2017-01-07] MEDS: PANTOPRAZOLE GRANULES PACKET 40 MG PO SCH (09:44)
[2017-01-07] MEDS: SIMVASTATIN 10 MG TABLET PO SCH (09:45)
[2017-01-07] MEDS: AMIODARONE HCL 200 MG TABLET PO SCH (09:45)
[2017-01-07] MEDS: OXYBUTYNIN CHLORIDE 5 MG TABLET PO SCH ×2 (09:45→21:08)
[2017-01-07] MEDS ORDERED: LevALBUTEROL HCL 1.25 MG/0.5 ML *CONC.* VIAL.NEB (XOPENEX CONC.) INH PRN (12:45)
[2017-01-07] MEDS ORDERED: LEVOFLOXACIN 500 MG/D5W 100 ML IV ONE (13:00)
[2017-01-07] MEDS ORDERED: LevALBUTEROL HCL 1.25 MG/0.5 ML *CONC.* VIAL.NEB (XOPENEX CONC.) INH ONE (13:00)
[2017-01-07] MEDS ORDERED: FUROSEMIDE 20 MG/2 ML VIAL IVP ONE (14:45)
[2017-01-07] MEDS: INSULIN REGULAR, HUMAN 100 UNITS/ML, 10 ML VIAL (novoLIN R) SUBCUT PRN ×2 (16:57→21:46)
[2017-01-07] MEDS: WARFARIN SODIUM 2 MG TABLET PO SCH (17:57)
[2017-01-07] MEDS: LevALBUTEROL HCL 1.25 MG/0.5 ML *CONC.* VIAL.NEB (XOPENEX CONC.) INH SCH (23:56)
[2017-01-08 00:49] VITALS: BP 110/49; PULSE 93; RESP 18; TEMP 97.9; O2SAT 93
[2017-01-08 04:35] VITALS: BP 111/50; PULSE 91; RESP 18; TEMP 97.6; O2SAT 92
[2017-01-08 06:16] LABS: CALCIUM 8.3 mg/dL (8.4-11.0); CREATININE 1.72 mg/dL (0.55-1.30); POTASSIUM 4.5 mmol/L (3.5-5.1)
[2017-01-08] MEDS: INSULIN REGULAR, HUMAN 100 UNITS/ML, 10 ML VIAL (novoLIN R) SUBCUT PRN ×3 (06:16→21:48)
[2017-01-08 06:25] LABS: BASOPHILS % (AUTO) 0.5 % (0.0-2.0); EOSINOPHILS % (AUTO) 0.6 % (0.0-4.0); HEMATOCRIT 28.1 % (36-48); HEMOGLOBIN 8.9 g/dL (12.0-16.0); MEAN CORPUSCULAR HEMOGLOBIN 25 pg (27-31); MEAN CORPUSCULAR HGB CONC 32 % (32-36); MEAN CORPUSCULAR VOLUME 81 fL (79.0-98.0); MONOCYTES # (AUTO) 0.9 K/uL (0.0-1.0); MONOCYTES % (AUTO) 11.2 % (1.7-9.3); NEUTROPHILS # (AUTO) 5.8 K/uL (1.8-7.7); NEUTROPHILS % (AUTO) 74.7 % (40.0-70.0); PLATELET COUNT (AUTO) 171 K/uL (130-430); RED BLOOD CELL COUNT(AUTO) 3.49 MIL/uL (4.2-6.2); RED CELL DISTRIBUTION WIDTH 18.8 % (9.0-15.0); WHITE BLOOD COUNT (AUTO) 7.7 K/uL (4.8-10.8)
[2017-01-08] MEDS: LevALBUTEROL HCL 1.25 MG/0.5 ML *CONC.* VIAL.NEB (XOPENEX CONC.) INH SCH ×3 (07:00→23:21)
[2017-01-08 08:00] VITALS: BP 127/70; PULSE 95; RESP 18; TEMP 96.8; O2SAT 93
[2017-01-08] MEDS ORDERED: FUROSEMIDE 20 MG/2 ML VIAL IVP ONE (09:45)
[2017-01-08] MEDS: AMIODARONE HCL 200 MG TABLET PO SCH (09:59)
[2017-01-08] MEDS: METOPROLOL SUCCINATE 50 MG TAB.SR.24H (TOPROL XL) PO SCH ×2 (09:59→21:17)
[2017-01-08] MEDS: SIMVASTATIN 10 MG TABLET PO SCH (09:59)
[2017-01-08] MEDS: SPIRONOLACTONE 25 MG TABLET (ALDACTONE) PO SCH (10:00)
[2017-01-08] MEDS: PANTOPRAZOLE GRANULES PACKET 40 MG PO SCH (10:00)
[2017-01-08] MEDS: OXYBUTYNIN CHLORIDE 5 MG TABLET PO SCH ×2 (10:00→21:17)
[2017-01-08] MEDS: LEVOFLOXACIN 250 MG/D5W 50 ML IV SCH (10:28)
[2017-01-08 12:00] VITALS: BP 135/78; PULSE 113; RESP 18; TEMP 98; O2SAT 93
[2017-01-08 16:00] VITALS: BP_SYST 126; BP_SYST 138; BP_DIAS 68; BP_DIAS 79; PULSE 64; PULSE 99; RESP 20; RESP 21; TEMP 98.2; O2SAT 92; O2SAT 98
[2017-01-08] MEDS: WARFARIN SODIUM 2 MG TABLET PO SCH (17:07)
[2017-01-08] MEDS ORDERED: FUROSEMIDE 40 MG/4 ML VIAL IVP ONE (18:00)
[2017-01-09 00:46] VITALS: TEMP 97.9
[2017-01-09 04:23] VITALS: BP 127/72; PULSE 71; RESP 18; TEMP 98.3; O2SAT 100
[2017-01-09 06:23] LABS: CALCIUM 8.3 mg/dL (8.4-11.0); CREATININE 1.78 mg/dL (0.55-1.30)
[2017-01-09 06:24] LABS: BASOPHILS % (AUTO) 0.5 % (0.0-2.0); EOSINOPHILS # (AUTO) 0.1 K/uL (0.0-0.4); EOSINOPHILS % (AUTO) 1.3 % (0.0-4.0); HEMATOCRIT 28.5 % (36-48); HEMOGLOBIN 8.8 g/dL (12.0-16.0); LYMPHOCYTES # (AUTO) 1.2 K/uL (1.0-5.5); LYMPHOCYTES % (AUTO) 16.6 % (20.5-51.5); MEAN CORPUSCULAR HEMOGLOBIN 25 pg (27-31); MEAN CORPUSCULAR HGB CONC 31 % (32-36); MEAN CORPUSCULAR VOLUME 81 fL (79.0-98.0); MONOCYTES # (AUTO) 0.9 K/uL (0.0-1.0); MONOCYTES % (AUTO) 11.8 % (1.7-9.3); NEUTROPHILS # (AUTO) 5.1 K/uL (1.8-7.7); NEUTROPHILS % (AUTO) 69.8 % (40.0-70.0); PLATELET COUNT (AUTO) 189 K/uL (130-430); RED BLOOD CELL COUNT(AUTO) 3.53 MIL/uL (4.2-6.2); RED CELL DISTRIBUTION WIDTH 18.8 % (9.0-15.0); WHITE BLOOD COUNT (AUTO) 7.3 K/uL (4.8-10.8)
[2017-01-09 06:42] LABS: INR 2.3 (0.8-1.2); PROTHROMBIN TIME 25.9 SECS (9.5-12.5)
[2017-01-09] MEDS: LevALBUTEROL HCL 1.25 MG/0.5 ML *CONC.* VIAL.NEB (XOPENEX CONC.) INH SCH ×2 (07:35→15:26)
[2017-01-09 08:00] VITALS: BP 140/76; PULSE 76; RESP 18; TEMP 96.8; O2SAT 94
[2017-01-09] MEDS: LEVOFLOXACIN 250 MG/D5W 50 ML IV SCH (08:53)
[2017-01-09] MEDS: SIMVASTATIN 10 MG TABLET PO SCH (08:53)
[2017-01-09] MEDS: SPIRONOLACTONE 25 MG TABLET (ALDACTONE) PO SCH (08:54)
[2017-01-09] MEDS: PANTOPRAZOLE GRANULES PACKET 40 MG PO SCH (08:54)
[2017-01-09] MEDS: AMIODARONE HCL 200 MG TABLET PO SCH (08:54)
[2017-01-09] MEDS: OXYBUTYNIN CHLORIDE 5 MG TABLET PO SCH (08:54)
[2017-01-09] MEDS: METOPROLOL SUCCINATE 50 MG TAB.SR.24H (TOPROL XL) PO SCH (08:55)
[2017-01-09] MEDS ORDERED: DIGOXIN 0.125 MG TABLET PO SCH (09:00)
[2017-01-09 11:51] VITALS: Ht 165.1 cm; Wt 54.0 kg
[2017-01-09 12:00] VITALS: BP 155/61; PULSE 79; RESP 21; TEMP 97.1; O2SAT 96
[2017-01-09] MEDS ORDERED: FUROSEMIDE 40 MG/4 ML VIAL IVP ONE (12:00)
[2017-01-09] MEDS: WARFARIN SODIUM 2 MG TABLET PO SCH (17:06)
[2017-01-09] MEDS: INSULIN REGULAR, HUMAN 100 UNITS/ML, 10 ML VIAL (novoLIN R) SUBCUT PRN (17:08)
[2017-01-09 17:34] VITALS: BP 155/75; PULSE 75; RESP 18; TEMP 98; O2SAT 94
[2017-01-09] MEDS ORDERED: LACTOBACILLUS RHAMNOSUS GG 1 CAP CAPSULE PO SCH (21:00)
[2017-01-13] MEDS ORDERED: ALENDRONATE SODIUM 70 MG TABLET (FOSAMAX) PO SCH (09:00)
== END 2017-01-09 18:35 | disposition home or self-care (01) | DRG 291 ==
LOC: STU 13:30 → SIC 19:08 → STU 01-07 17:20 → SMU 01-09 15:37
PROVIDERS: ADMIT Family Medicine; ATTEND Family Medicine
DX: I13.0 Hypertensive heart and chronic kidney disease with heart failure and stage 1 through stage 4 chronic kidney disease, or unspecified chronic kidney disease (principal); J18.9 Pneumonia, unspecified organism; I50.23 Acute on chronic systolic (congestive) heart failure; N18.4 Chronic kidney disease, stage 4 (severe); I42.9 Cardiomyopathy, unspecified; E03.9 Hypothyroidism, unspecified; E11.22 Type 2 diabetes mellitus with diabetic chronic kidney disease; D64.9 Anemia, unspecified; E78.5 Hyperlipidemia, unspecified; I48.2 Chronic atrial fibrillation; I95.9 Hypotension, unspecified; I05.0 Rheumatic mitral stenosis; Z95.810 Presence of automatic (implantable) cardiac defibrillator; Z79.01 Long term (current) use of anticoagulants; Z95.2 Presence of prosthetic heart valve
CPT/HCPCS: 36415; 71010; 71020-TC; 71250-TC; 80048; 82962; 83880; 85025; 85610-TC; 87081; 94640; 94760; J1815; J1940; J1956; J7030